=== PATIENT | male | born 1955 | race Caucasian/White ===

== ENCOUNTER → 2016-08-27 | Outpatient (CLI) | payer MEDICARE, OTHER ==
[2016-08-27 14:52] LABS: ABSOLUTE BASOPHILS # (AUTO) 0.1 10^3/uL (0.0-0.2); ABSOLUTE EOSINOPHILS # (AUTO) 0.2 10^3/uL (0.0-0.6); ABSOLUTE LYMPHOCYTES (AUTO) 1.1 10^3/uL (0.5-4.7); ABSOLUTE MONOCYTES (AUTO) 0.8 10^3/uL (0.1-1.4); ABSOLUTE NEUT (AUTO) 4.7 10^3/uL (1.7-8.2); EOSINOPHILS % (AUTO) 2.5 % (0-6); HEMATOCRIT 40.1 % (37.9-51.0); HEMOGLOBIN 13.1 g/dL (13.5-17.0); HGB HCT DIFFERENCE -0.8; LYMPHOCYTES % (AUTO) 16.1 % (13-45); MEAN CORPUSCULAR HGB CONC 32.7 g/dL (32.0-36.0); MEAN CORPUSCULAR VOLUME 86 fl (80-97); MONOCYTES % (AUTO) 11.5 % (3-13); RED BLOOD COUNT 4.68 10^6/uL (4.35-5.55); RED CELL DISTRIBUTION WIDTH 15.7 % (11.5-14.0); SEGMENTED NEUTROPHILS % (AUTO) 68.9 % (42-78); WHITE BLOOD COUNT 6.9 10^3/uL (4.0-10.5)
[2016-08-27 15:29] LABS: ERYTHROCYTE SEDIMENTATION RATE 22 mm/hr (0-20)
== END ==
LOC: LAB 14:32
PROVIDERS: ATTEND Physician Assistant
DX: M10.9 Gout, unspecified (principal)
CPT/HCPCS: 36415; 81001; 84550; 85025; 85652; 86140

== ENCOUNTER → 2016-08-29 | Outpatient (CLI) | payer MEDICARE, OTHER | LOC: RAD 13:27 | PROVIDERS: ATTEND Physician Assistant | DX: M25.572 Pain in left ankle and joints of left foot (principal) ==

== ENCOUNTER 2016-09-08 16:38 | Emergency (ER) | payer MEDICARE, OTHER ==
--- NOTE | 2016-09-08 17:58 | ER Document Report ---
ED Extremity Problem, Lower - General Chief Complaint: Leg Swelling Stated Complaint: LEFT LEG PAIN Time Seen by Provider: 09/08/16 17:42 Notes: Patient is here because of pain in his left leg. He has had multiple problems with that leg extending over the past 6 months. Patient has had a thrombolytic injected in the left thigh region for a blood clot. He subsequently developed a hematoma in the anterior left thigh in January. He was put on warfarin. He subsequently developed a second hematoma. Now, he's been having pain in the left lower leg extending from below the knee on down since June. He was changed from warfarin to Eliquis. He sees about 5 different doctors, none of them can determine what's causing his left lower leg pain. He had a CT scan of the left ankle a couple of weeks ago here at this hospital and it was read as nonspecific findings. He's had lab work done that showed very small increases in his inflammatory markers of sedimentation rate and C-reactive protein. He is scheduled to be seen at [facility] next week on September 13 for evaluation. Basically, today, I think he is here for pain management. TRAVEL OUTSIDE OF THE [place] IN LAST 30 DAYS: No - Related Data Allergies/Adverse Reactions: amoxicillin [Amoxicillin] Allergy (Unknown, Verified 05/20/15 13:19) esomeprazole magnesium [From Nexium] Allergy (Unknown, Verified 05/20/15 13:19) Past Medical History - Social History Smoking Status: Former Smoker Cigarette use (# per day): No Family History: Reviewed & Not Pertinent - Past Medical History Cardiac Medical History: Reports: Hx Atrial Fibrillation - FIB/FLUT, Hx Hypercholesterolemia, Hx Hypertension Pulmonary Medical History: Reports: Hx COPD Endocrine Medical History: Reports: Hx Diabetes Mellitus Type 2 Psychiatric Medical History: Reports: Hx Depression Past Surgical History: Reports: Hx Cardiac Surgery - STENT, PACEMAKER NO DEFIB, Hx Orthopedic Surgery - shoulder and back, Hx Pacemaker - Immunizations Hx Diphtheria, Pertussis, Tetanus Vaccination: No Hx Pneumococcal Vaccination: 05/01/12 Review of Systems - Review of Systems Notes: REVIEW OF SYSTEMS: CONSTITUTIONAL : Denies fever. EENT: Denies eye, ear, nose or mouth or throat pain or other symptoms. CARDIOVASCULAR: Denies chest pain. RESPIRATORY: Denies cough, chest congestion, or shortness of breath. GASTROINTESTINAL: Denies abdominal pain or nausea, vomiting, or diarrhea. GENITOURINARY: Denies difficulty or painful urinating, urinary frequency, blood in urine. MUSCULOSKELETAL: Denies back or neck pain. See history of present illness regarding left lower extremity and especially left ankle pain. SKIN: Denies rash or skin lesions. NEUROLOGICAL: Denies LOC or altered mental status. Denies headache. Denies sensory loss or motor deficits. ALL OTHER SYSTEMS REVIEWED AND NEGATIVE. Physical Exam - Vital signs Vitals: Temp Pulse Resp BP Pulse Ox 98.3 F 69 18 150/83 H 96 09/08/16 16:46 09/08/16 16:46 09/08/16 16:46 09/08/16 16:46 09/08/16 16:46 Interpretation: Normal - Notes Notes: PHYSICAL EXAMINATION: GENERAL: Well-appearing, in no acute distress. Vital signs are normal. HEAD: Atraumatic, normocephalic. NECK: Normal range of motion, supple. LUNGS: Breath sounds clear and equal bilaterally. HEART: Regular rate and rhythm without murmurs. ABDOMEN: Soft, nontender. No guarding or rebound. BACK: No tenderness throughout entire back. EXTREMITIES: Normal range of motion without pain. Toes of both feet are pink and warm. Patient's dorsalis pedis pulse on the left foot is somewhat difficult to palpate because he does have a small amount of edema in the subcutaneous tissues there. However, he has an excellent posterior tibial pulse in that left ankle. Right foot and ankle have good dorsalis pedis pulse and flow. No evidence of swelling or areas that would be expected to cause a DVT. Negative Homans bilaterally. Patient does have a very firm, hard, solid- feeling small mass in the left anterior thigh which she says has been diagnosed as an hematoma. NEUROLOGICAL: Normal speech, slightly limp gait. Normal sensory, motor, and reflex exams. Awake, alert, and oriented x3. Cranial nerves normal. PSYCH: Normal mood, normal affect. SKIN: Warm, dry, no rashes. Course - Re-evaluation Re-evalutation: 09/08/16 20:19 I advised the patient that I saw no way that I would be able to try to diagnose what's causing his pain has been ongoing for many months now and has been addressed by multiple providers of various specialties, and his objective findings have all been essentially normal. In addition, he has an appointment to be evaluated at [facility] next week. I did offer to help him out with something for spasms that he describes in his left foot and pain in that foot and ankle by giving him some Ativan and Vicodin. He says he was just given a prescription today his orthopedist for Lyrica. He is also already taking gabapentin twice a day. I've advised him to continue taking all of his medicines that have been prescribed for him by the other doctors use the medicines I'm prescribing for rescue only. - Vital Signs Vital signs: Temp Pulse Resp BP Pulse Ox 97.7 F 62 18 141/83 H 96 09/08/16 18:09 09/08/16 18:09 09/08/16 18:09 09/08/16 18:09 09/08/16 18:09 Discharge - Discharge Clinical Impression: Left leg pain Condition: Stable Disposition: HOME, SELF-CARE Additional Instructions: Leg Pain, Nonspecific We did not find an obvious cause for your leg pain. There's no sign of blood clot, infection, or other serious disease. Possible causes of vague leg pain include muscle or joint inflammation, disc disease in the lower back, pressure on the nerves in the back, or reduced blood flow through the arteries of the leg. Rest the leg. Pain can be eased with an antiinflammatory pain medicine such as ibuprofen. If the pain involves a small area, a heating pad might help. Call the doctor or return if the leg becomes swollen, weak, discolored, or increasingly painful, or if you develop any other significant change in your health. Oral Narcotic Medication You have been given a prescription for pain control. This medication is a narcotic. It's best taken with food, as nausea can result if taken on an empty stomach. Don't operate machinery or drive within six hours of taking this medication. Do not combine this medicine with alcohol, or with any medication which can cause sedation (such as cold tablets or sleeping pills) unless you get permission from the physician. Narcotics tend to cause constipation. If possible, drink plenty of fluids and eat a diet high in fiber and fruits. Benzodiazepines for spasm relief You have been given a benzodiazepine medication. Examples of this type of medicine include Valium, Xanax, Librium, Ativan, and Halcion. Benzodiazepines have many uses. Medications of this type are used for insomnia, anxiety, muscle spasms, seizures, and drug and alcohol withdrawal. You may become very drowsy when you first take the medication. You should not drive or operate machinery while under its effects. Do not combine the medication with alcohol, or with any other medication without talking to your doctor. Do not take if without specific instruction from your english composition teacher. Some benzodiazepines may have harmful interactions with oral antifungal medicines such as ketoconazole, itraconazole, and nefazodone. If you are taking an antifungal medicine, discuss this with your doctor before taking benzodiazepines. FOLLOW-UP CARE: If you have been referred to a physician for follow-up care, call the physician s office for an appointment as you were instructed or within the next two days. If you experience worsening or a significant change in your symptoms, notify the physician immediately or return to the Emergency Department at any time for re-evaluation. Prescriptions: Hydrocodone/Acetaminophen [[place] 5-325 mg Tablet] 1 - 2 tab PO Q6HP PRN #20 tablet PRN Reason: Lorazepam [Ativan 1 mg Tablet] 1 mg PO Q6HP PRN #12 tab PRN Reason: Referrals: SHELDON HURST MD [Primary Care Provider] - Follow up as needed
[2016-09-08 18:11] VITALS: BP 141/83
== END 2016-09-08 18:09 | disposition home or self-care (01) ==
LOC: ER 16:38
DX: M79.605 Pain in left leg (principal); R22.42 Localized swelling, mass and lump, left lower limb; J44.9 Chronic obstructive pulmonary disease, unspecified; E11.9 Type 2 diabetes mellitus without complications; I48.91 Unspecified atrial fibrillation; E78.00 Pure hypercholesterolemia, unspecified; I10 Essential (primary) hypertension; Z95.0 Presence of cardiac pacemaker; Z88.0 Allergy status to penicillin; Z86.718 Personal history of other venous thrombosis and embolism; Z87.891 Personal history of nicotine dependence
CPT/HCPCS: 99283

== ENCOUNTER 2016-09-22 10:42 | Emergency (ER) | payer MEDICARE, OTHER ==
--- NOTE | 2016-09-22 11:05 | ER Document Report ---
ED Medical Screen (RME) - General Chief Complaint: Leg Pain Stated Complaint: LEFT LEG PAIN Time Seen by Provider: 09/22/16 10:56 Mode of Arrival: Wheelchair Information source: Patient Notes: Pt reports developing a hematoma to left groin gradually after being on eliquis for a fib. Pt had hematoma removed last week at [facility]. Pt c/o pain and swelling to site similiar to hematoma he had initially. Pt c/o numbness and tingling to left foot. hx: a fib, HTN, DM, pacemaker, hematoma removed 1 week ago TRAVEL OUTSIDE OF THE [place] IN LAST 30 DAYS: No - Related Data Allergies/Adverse Reactions: amoxicillin [Amoxicillin] Allergy (Unknown, Verified 05/20/15 13:19) esomeprazole magnesium [From Nexium] Allergy (Unknown, Verified 05/20/15 13:19) Past Medical History - Past Medical History Cardiac Medical History: Reports: Hx Atrial Fibrillation - FIB/FLUT, Hx Hypercholesterolemia, Hx Hypertension Pulmonary Medical History: Reports: Hx COPD Endocrine Medical History: Reports: Hx Diabetes Mellitus Type 2 Renal/ Medical History: Denies: Hx Peritoneal Dialysis Psychiatric Medical History: Reports: Hx Depression Past Surgical History: Reports: Hx Cardiac Surgery - STENT, PACEMAKER NO DEFIB, Hx Orthopedic Surgery - shoulder and back, Hx Pacemaker - Immunizations Hx Diphtheria, Pertussis, Tetanus Vaccination: No Physical Exam - Vital signs Vitals: Temp Pulse Resp BP Pulse Ox 98.0 F 69 18 144/83 H 97 09/22/16 10:49 09/22/16 10:49 09/22/16 10:49 09/22/16 10:49 09/22/16 10:49 - Cardiovascular Pulses: Normal: Dorsalis pedis - Extremities General lower extremity: Tender - swollen, tender area to left prox thigh at surgical site Course - Re-evaluation Re-evalutation: 09/22/16 11:[address] bean who advises obtaining arterial as well as venous doppler study - Vital Signs Vital signs: Temp Pulse Resp BP Pulse Ox 98.0 F 69 18 144/83 H 97 09/22/16 10:49 09/22/16 10:49 09/22/16 10:49 09/22/16 10:49 09/22/16 10:49
[2016-09-22] MEDS ORDERED: ONDANSETRON 4 MG TAB.RAPDIS PO ONE (11:11)
[2016-09-22 11:40] LABS: ABSOLUTE BASOPHILS # (AUTO) 0.1 10^3/uL (0.0-0.2); ABSOLUTE EOSINOPHILS # (AUTO) 0.2 10^3/uL (0.0-0.6); ABSOLUTE LYMPHOCYTES (AUTO) 0.8 10^3/uL (0.5-4.7); ABSOLUTE MONOCYTES (AUTO) 0.7 10^3/uL (0.1-1.4); ABSOLUTE NEUT (AUTO) 5.7 10^3/uL (1.7-8.2); BASOPHILS % (AUTO) 1.1 % (0-2); EOSINOPHILS % (AUTO) 2.3 % (0-6); HEMATOCRIT 37.2 % (37.9-51.0); HEMOGLOBIN 11.8 g/dL (13.5-17.0); HGB HCT DIFFERENCE -1.8; LYMPHOCYTES % (AUTO) 10.5 % (13-45); MEAN CORPUSCULAR HEMOGLOBIN 27.3 pg (27.0-33.4); MEAN CORPUSCULAR HGB CONC 31.8 g/dL (32.0-36.0); MEAN CORPUSCULAR VOLUME 86 fl (80-97); MONOCYTES % (AUTO) 9.8 % (3-13); RED BLOOD COUNT 4.33 10^6/uL (4.35-5.55); RED CELL DISTRIBUTION WIDTH 15.6 % (11.5-14.0); SEGMENTED NEUTROPHILS % (AUTO) 76.3 % (42-78); WHITE BLOOD COUNT 7.5 10^3/uL (4.0-10.5)
[2016-09-22 11:46] LABS: PROTHROMBIN TIME 16.2 SEC (11.4-15.4)
[2016-09-22 12:06] LABS: ALANINE AMINOTRANSFERASE 31 U/L (21-72); ALBUMIN 4.5 g/dL (3.5-5.0); ALKALINE PHOSPHATASE 89 U/L (38-126); ANION GAP 17 (5-19); ASPARTATE AMINO TRANSFERASE 27 U/L (17-59); BILIRUBIN,TOTAL 1.7 mg/dL (0.2-1.3); BLOOD UREA NITROGEN 22 mg/dL (7-20); CALCIUM 10.1 mg/dL (8.4-10.2); CARBON DIOXIDE 24 mmol/L (22-30); CHLORIDE 99 mmol/L (98-107); CREATININE RESULT 1.29 mg/dL (0.52-1.25); GLUCOSE 147 mg/dL (75-110); POTASSIUM 4.4 mmol/L (3.6-5.0); SODIUM 140.1 mmol/L (137-145)
--- NOTE | 2016-09-22 14:17 | ER Document Report ---
ED General - General Chief Complaint: Leg Pain Stated Complaint: LEFT LEG PAIN Time Seen by Provider: 09/22/16 10:56 Mode of Arrival: Wheelchair Information source: Patient TRAVEL OUTSIDE OF THE [place] IN LAST 30 DAYS: No - HPI Onset: Other - [age]-year-old male presents to the emergency room today stating that he has got discomfort to his left lower extremity medially and distal to the groin he had a hematoma evacuated at [facility] [address] [facility] about a week and a half ago and is getting swelling back to that region. - Related Data Allergies/Adverse Reactions: amoxicillin [Amoxicillin] Allergy (Unknown, Verified 05/20/15 13:19) esomeprazole magnesium [From Nexium] Allergy (Unknown, Verified 05/20/15 13:19) Past Medical History - General Information source: Patient - Social History Smoking Status: Never Smoker Cigarette use (# per day): No Chew tobacco use (# tins/day): No Smoking Education Provided: No Frequency of alcohol use: None Drug Abuse: None Family History: Reviewed & Not Pertinent - Past Medical History Cardiac Medical History: Reports: Hx Atrial Fibrillation - FIB/FLUT, Hx Hypercholesterolemia, Hx Hypertension Pulmonary Medical History: Reports: Hx COPD Endocrine Medical History: Reports: Hx Diabetes Mellitus Type 2 Renal/ Medical History: Denies: Hx Peritoneal Dialysis Psychiatric Medical History: Reports: Hx Depression Past Surgical History: Reports: Hx Cardiac Surgery - STENT, PACEMAKER NO DEFIB, Hx Orthopedic Surgery - shoulder and back, Hx Pacemaker, Hx Vascular Surgery - hematoma removal left leg - Immunizations Hx Diphtheria, Pertussis, Tetanus Vaccination: No Hx Pneumococcal Vaccination: 05/01/12 Review of Systems - Review of Systems Constitutional: No symptoms reported EENT: No symptoms reported Cardiovascular: No symptoms reported Respiratory: No symptoms reported Gastrointestinal: No symptoms reported Genitourinary: No symptoms reported Male Genitourinary: No symptoms reported Musculoskeletal: No symptoms reported Skin: No symptoms reported Hematologic/Lymphatic: No symptoms reported Neurological/Psychological: No symptoms reported Physical Exam - Vital signs Vitals: Temp Pulse Resp BP Pulse Ox 98.0 F 69 18 144/83 H 97 09/22/16 10:49 09/22/16 10:49 09/22/16 10:49 09/22/16 10:49 09/22/16 10:49 Interpretation: Normal - General General appearance: Appears well, Alert - HEENT Head: Normocephalic, Atraumatic Eyes: Normal Pupils: PERRL - Respiratory Respiratory status: No respiratory distress Chest status: Nontender Breath sounds: Normal Chest palpation: Normal - Cardiovascular Rhythm: Regular Heart sounds: Normal auscultation Murmur: No - Abdominal Inspection: Normal Distension: No distension Bowel sounds: Normal Tenderness: Nontender Organomegaly: No organomegaly - Back Back: Normal, Nontender - Extremities General upper extremity: Normal inspection, Nontender, Normal color, Normal ROM , Normal temperature General lower extremity: Normal inspection, Nontender, Normal color, Normal ROM , Normal temperature, Normal weight bearing. No: Sreekanth's sign Thigh: Other - Hematoma left medial and proximal thigh inflammation tender at surgical site from prior hematoma evacuation. - Neurological Neuro grossly intact: Yes Cognition: Normal Orientation: AAOx4 Miguel Coma Scale Eye Opening: Spontaneous Ripton Coma Scale Verbal: Oriented Ripton Coma Scale Motor: Obeys Commands Miguel Coma Scale Total: 15 Speech: Normal Motor strength normal: LUE, RUE, LLE, RLE Sensory: Normal - Psychological Associated symptoms: Normal affect, Normal mood - Skin Skin Temperature: Warm Skin Moisture: Dry Skin Color: Normal Course - Re-evaluation Re-evalutation: 09/22/16 14:13 Discussion was had with the patient regarding the discomfort that he feels the site radiology confirm no venous or arterial occlusion at the site that there was in fact some soft tissue inflammation consistent with some reforming of a hematoma in the area. In fact have a surgeon at [facility] [address] at the [facility] does have access to him will follow up with him in the next couple of days we agreed that I would try to provide him some pain medication and spasmatic relief in the interim. He should return here for absolutely any change or worsening conditioning including not limited to coolness to the lower extremity loss of pulses increased pain - Vital Signs Vital signs: Temp Pulse Resp BP Pulse Ox 98.0 F 69 18 144/83 H 97 09/22/16 10:49 09/22/16 10:49 09/22/16 10:49 09/22/16 10:49 09/22/16 10:49 - Laboratory Result Diagrams: 09/22/16 11:25 09/22/16 11:25 Laboratory results interpreted by me: 09/22/16 09/22/16 09/22/16 11:25 11:25 11:25 RBC 4.33 L Hgb 11.8 L Hct 37.2 L MCHC 31.8 L RDW 15.6 H Lymphocytes % 10.5 L PT 16.2 H BUN 22 H Creatinine 1.29 H Est GFR (Non-Af Amer) 56 L Glucose 147 H Total Bilirubin 1.7 H Direct Bilirubin 1.0 H - Diagnostic Test Radiology reviewed: Reports reviewed Discharge - Discharge Clinical Impression: Traumatic hematoma of left thigh Qualifiers: Encounter type: subsequent encounter Qualified Code(s): S70.12XD - Contusion of left thigh, subsequent encounter Condition: Fair Disposition: HOME, SELF-CARE Additional Instructions: Contusion Your injury has resulted in a contusion -- a crushing of the deep tissues. No injury to important structures was detected during the physician's exam. Contusions vary in the amount of pain they cause, and in the length of time required for healing. Typically, the area will become bruised, and will remain painful to touch for two or three weeks. However, most patients are back to working and playing within a few days. After the initial period of rest and cold-packs, your symptoms (together with the doctor's recommendations) will determine how rapidly you can get back to full activity. Usually this means "do what feels okay, but don't do things that hurt." If re-examination was recommended, it's important to follow up as instructed. Call the doctor or return any time if pain increases, if swelling becomes severe, if you develop numbness or weakness in an injured extremity, or if any other alarming symptoms occur. Ice to the affected area. Must follow-up with your surgeon in 1-2 days. Return to the emergency room for any change or worsening. Follow-up with private doctor in 1 to 2 days for final radiology readings please return to the emergency room for any change worsening condition. Follow up with private M.D. for all other routine health care needs. Prescriptions: Gabapentin [Neurontin 300 mg Capsule] 300 mg PO Q12 #60 capsule Oxycodone HCl/Acetaminophen [Percocet 5-325 mg Tablet] 1 - 2 tab PO Q4H PRN #15 tablet PRN Reason:
[2016-09-22 14:40] VITALS: BP 136/72
--- NOTE | 2016-09-23 08:14 | XCELERA REPORT ---
[address] [address] Lower Extremity Venous Evaluation Name: LINO SCRUGGS Age: 61 yrs Gender: Male : 1955 Patient Status: Emergency Patient Location: ER Study Date: 09/22/2016 12:13 PM Procedure: Color flow and duplex imaging of the veins of the left lower extremity as well as the right Common Femoral vein. Reason For Study: Hx hematoma removed, swelling, pain Ordering Physician: TONJA EDMONDS Performed By: Merrick Romero Right Sided Venous Evaluation The right common femoral vein is fully compressible. Spontaneous and phasic flow is present in the right common femoral vein. Left Sided Venous Evaluation Unable to visualize the Peroneal vessels. Normal vessel filling wall to wall, compression and augmentation as well as Colour flow down to the infrageniculate veins. Critical Findings Called in to the ER. Interpretation Summary No duplex evidence of DVT or obstruction in the left lower extremity nor in the right Common Femoral vein. : TONJA EDMONDS > Raphael Scruggs
--- NOTE | 2016-09-23 08:19 | XCELERA REPORT ---
[address] [address] Lower Extremity Arterial Evaluation Name: LINO SCRUGGS Age: 61 yrs Gender: Male : 1955 Patient Status: Emergency Patient Location: ER Study Date: 09/22/2016 11:54 AM Procedure: A color flow and duplex scan of the lower extremity arteries was performed on the left with velocity and waveform anaylsis. Reason For Study: hx: hematoma removed, swelling, pain Ordering Physician: TONJA EDMONDS Performed By: Merrick Romero Measurements and Calculations Right Left CHILDREN'S SERVICE SUPERVISOR PSV 67.7 cm/sec Prox SFA PSV 58.7 cm/sec Mid SFA PSV -62.9 cm/sec Dist SFA PSV -197.6 cm/sec Dist Pop A PSV 103.1 cm/sec Dist MARCELLA PSV 79.5 cm/sec Dist LEGAL CLERK PSV 79.0 cm/sec Ben Pedis PSV 25.3 cm/sec Left Side Arterial Evaluation A large, 5 x 10 cm, non vascular, lucent mass is noted in the subcutaneous tissues of the thigh. Normal velocity and triphasic waveforms noted from the Common Femoral artery to the Popliteal artery. Biphasic in the infrageniculate vessels. 0 stenosis noted. Ankle Brachial index was not done. Critical Findings Discussed with Provider Kasia. Interpretation Summary Mild hemodynamically significant lesions in the left lower extremity only, on duplex imaging, at rest. Very large mass, possibly recurrent hematoma, at the site of a recent surgery. : TONJA EDMONDS > Raphael Scruggs
== END 2016-09-22 15:01 | disposition home or self-care (01) ==
LOC: ER 10:42
DX: S70.12XD Contusion of left thigh, subsequent encounter (principal); X58.XXXD Exposure to other specified factors, subsequent encounter; Z98.890 Other specified postprocedural states; Z88.0 Allergy status to penicillin; I10 Essential (primary) hypertension; I48.91 Unspecified atrial fibrillation; I48.92 Unspecified atrial flutter; J44.9 Chronic obstructive pulmonary disease, unspecified; Z95.0 Presence of cardiac pacemaker
CPT/HCPCS: 99284; 36415; 85025; 85610; 80053; 93971 ×2; 93926 ×2; A9270; S0119

== ENCOUNTER 2016-10-03 15:18 | Inpatient (IN) | payer MEDICARE, OTHER ==
[2016-10-03] MEDS ORDERED: DILTIAZEM HCL/D5W 125 ML IV PRN ×2 (15:23→22:06)
--- NOTE | 2016-10-03 15:28 | ER Document Report ---
ED General - General Stated Complaint: DIFFICULTY BREATHING Time Seen by Provider: 10/03/16 15:22 Mode of Arrival: Medic Information source: Patient Notes: 61 yr old male who was recently discharged from [facility] with a hematoma removal of the elft leg with a hx of afib presents with complaints of sob. pt denies any fevers or chills. pt has hx of copd, sats 95% by ems. pt noted to have been removed from both eliquiis and amiodarone. TRAVEL OUTSIDE OF THE [place] IN LAST 30 DAYS: No - HPI Onset: Just prior to arrival Onset/Duration: Sudden Quality of pain: Achy Severity: Mild Pain Level: 1 Associated symptoms: Shortness of breath Exacerbated by: Walking Relieved by: Denies Similar symptoms previously: No Recently seen / treated by doctor: Yes - Related Data Allergies/Adverse Reactions: amoxicillin [Amoxicillin] Allergy (Unknown, Verified 05/20/15 13:19) esomeprazole magnesium [From Nexium] Allergy (Unknown, Verified 05/20/15 13:19) Home Medications: Current Home Medications Amitriptyline HCl [Elavil 25 mg Tablet] 25 mg PO QHS 10/03/16 [History] Amlodipine Besylate [Norvasc 5 mg Tablet] 5 mg PO DAILY 10/03/16 [History] Tiotropium [place] [Spiriva Respimat] 2 puff IH DAILY 10/03/16 [History] Past Medical History - Social History Smoking Status: Never Smoker Cigarette use (# per day): No Chew tobacco use (# tins/day): No Smoking Education Provided: No Family History: Reviewed & Not Pertinent - Past Medical History Cardiac Medical History: Reports: Hx Atrial Fibrillation - FIB/FLUT, Hx Hypercholesterolemia, Hx Hypertension Pulmonary Medical History: Reports: Hx COPD Endocrine Medical History: Reports: Hx Diabetes Mellitus Type 2 Renal/ Medical History: Denies: Hx Peritoneal Dialysis Psychiatric Medical History: Reports: Hx Depression Past Surgical History: Reports: Hx Cardiac Surgery - STENT, PACEMAKER NO DEFIB, Hx Orthopedic Surgery - shoulder and back, Hx Pacemaker, Hx Vascular Surgery - hematoma removal left leg - Immunizations Hx Diphtheria, Pertussis, Tetanus Vaccination: No Hx Pneumococcal Vaccination: 05/01/12 Review of Systems - Review of Systems Notes: REVIEW OF SYSTEMS: CONSTITUTIONAL : Denies fever, chills, or sweats. Denies recent illness. EENT: Denies eye, ear, throat, or mouth pain or symptoms. Denies nasal or sinus congestion or discharge. Denies throat, tongue, or mouth swelling or difficulty swallowing. CARDIOVASCULAR: Denies chest pain. Denies palpitations or racing or irregular heart beat. Denies ankle edema. RESPIRATORY: admits to sob GASTROINTESTINAL: Denies abdominal pain or distention. Denies nausea, vomiting , or diarrhea. Denies blood in vomitus, stools, or per rectum. Denies black, tarry stools. Denies constipation. GENITOURINARY: Denies difficulty urinating, painful urination, burning, frequency, blood in urine, or discharge. MUSCULOSKELETAL: Denies back or neck pain or stiffness. Denies joint pain or swelling. SKIN: Denies rash, lesions or sores. HEMATOLOGIC : Denies easy bruising or bleeding. LYMPHATIC: Denies swollen, enlarged glands. NEUROLOGICAL: Denies confusion or altered mental status. Denies passing out or loss of consciousness. Denies dizziness or lightheadedness. Denies headache. Denies weakness or paralysis or loss of use of either side. Denies problems with gait or speech. Denies sensory loss, numbness, or tingling. Denies seizures. PSYCHIATRIC: Denies anxiety or stress. Denies depression, suicidal ideation, or homicidal ideation. ALL OTHER SYSTEMS REVIEWED AND NEGATIVE. Dictation was performed using [employer] voice recognition software PHYSICAL EXAMINATION: GENERAL: Well-appearing, well-nourished and in no acute distress. HEAD: Atraumatic, normocephalic. EYES: Pupils equal round and reactive to light, extraocular movements intact, sclera anicteric, conjunctiva are normal. ENT: Nares patent, oropharynx clear without exudates. Moist mucous membranes. NECK: Normal range of motion, supple without lymphadenopathy LUNGS: Breath sounds clear to auscultation bilaterally and equal. No wheezes rales or rhonchi. HEART: tachycardic, irregular rate and rhytm ABDOMEN: Soft, nontender, nondistended abdomen. No guarding, no rebound. No masses appreciated. Musculoskeletal: Normal range of motion, no pitting or edema. No cyanosis. NEUROLOGICAL: Cranial nerves grossly intact. Normal speech, normal gait. Normal sensory, motor exams PSYCH: Normal mood, normal affect. SKIN: left thigh wound vac Physical Exam - Vital signs Vitals: Temp 98.0 F 06/05/17 20:40 Course - Re-evaluation Re-evalutation: 10/03/16 15:27 pt seen immediately on arrival by ems pt given 20mg of cardizem, started on drip at 5mg, hr from 130-150 down to 100, will continue cardizem drip 10/03/16 16:22 While I was with 2 stroke alerts and a shoulder dislocation I was notfied by 5 different people that patients was extremely rude ot them, yelling at them , demanding I see her. I asked them to explain i was in emergencies and could not leave my patients contacted [facility], no beds available 10/03/16 16:30 I explained to that [facility] has no beds available, became irate, demanded that patient go there and that she would take him herself. I explained that due to ocncern of a blood clot that it would be a terrible idea to go before the testing was performed. After calmed her down she finally agreed to wait for that testing. She then stated that she does not want Dr Reyes as her physician. I explained that I would continue treating the patient appropriately as he deserved care. I also stated to the that she could not treat the staff rudely as she has including EMS (who as a result have notified police of her actions). immediately jumped toward me and pointed her finger in m face and began yelling. I calmy told her she needs to stp back or I will have security remove her. continued to yell stating "youre a medical professional and i can do whatever I want , and I want to talk to the head man of the hospital" Her who is the patient tried ot calm the patient down multiple times during this. She contined to yell " I waited 45 minutes to talk to you" I explained I had 3 critical patients who I had to see , that I saw her immeidately on arrival and that I would treat all patients with the same speed. She continued to yell and I walked out of the room. Awa charge nurse notified 10/03/16 20:59 Given that there is no room available at outlying facility I cannot transfer at this time, patient will be [facility] to the [facility] for A. fib RVR pleural effusions and nodule, very long discussion with family regarding this nodule I reviewed previous images and did not find any notice of the previous nodule however family does state that Dr. reyes did explain this nodule to them 10/03/16 21:00 - Vital Signs Vital signs: Temp Pulse Resp BP Pulse Ox 98.0 F 10/03/16 20:40 - Laboratory Result Diagrams: 10/03/16 16:40 10/03/16 16:40 Laboratory results interpreted by me: 10/03/16 10/03/16 16:40 16:40 RBC 3.88 L Hgb 10.6 L Hct 33.2 L MCHC 31.8 L RDW 15.7 H Plt Count 117 L Seg Neutrophils % 78.9 H Lymphocytes % 8.6 L Glucose 129 H Total Bilirubin 1.4 H Direct Bilirubin 0.7 H - Diagnostic Test Radiology reviewed: Image reviewed, Reports reviewed - EKG Interpretation by Me EKG shows normal: Sinus rhythm, [place], Intervals, QRS Complexes Rate: Tachycardia Rhythm: A.Fib Critical Care Note - Critical Care Note Total time excluding time spent on procedures (mins): 31 Comments: 31 minutes of critical care time spent in direct contact evaluating and reevaluating the patient, treating symptoms, reviewing labs and studies and speaking with family and consultants excluding any procedures Discharge - Discharge Clinical Impression: Atrial fibrillation with rapid ventricular response, Pleural effusion, Lung nodule Condition: Fair Disposition: ADMITTED INPATIENT Admitting Provider: Hospitalist Unit Admitted: [facility]
[2016-10-03 16:53] LABS: ABSOLUTE BASOPHILS # (AUTO) 0.1 10^3/uL (0.0-0.2); ABSOLUTE EOSINOPHILS # (AUTO) 0.1 10^3/uL (0.0-0.6); ABSOLUTE LYMPHOCYTES (AUTO) 0.7 10^3/uL (0.5-4.7); ABSOLUTE MONOCYTES (AUTO) 0.8 10^3/uL (0.1-1.4); ABSOLUTE NEUT (AUTO) 5.9 10^3/uL (1.7-8.2); BASOPHILS % (AUTO) 0.8 % (0-2); EOSINOPHILS % (AUTO) 1.1 % (0-6); HEMATOCRIT 33.2 % (37.9-51.0); HEMOGLOBIN 10.6 g/dL (13.5-17.0); HGB HCT DIFFERENCE -1.4; LYMPHOCYTES % (AUTO) 8.6 % (13-45); MEAN CORPUSCULAR HEMOGLOBIN 27.3 pg (27.0-33.4); MEAN CORPUSCULAR HGB CONC 31.8 g/dL (32.0-36.0); MEAN CORPUSCULAR VOLUME 86 fl (80-97); MONOCYTES % (AUTO) 10.6 % (3-13); RED BLOOD COUNT 3.88 10^6/uL (4.35-5.55); RED CELL DISTRIBUTION WIDTH 15.7 % (11.5-14.0); SEGMENTED NEUTROPHILS % (AUTO) 78.9 % (42-78); WHITE BLOOD COUNT 7.5 10^3/uL (4.0-10.5)
[2016-10-03 17:15] LABS: ALANINE AMINOTRANSFERASE 28 U/L (21-72); ALKALINE PHOSPHATASE 105 U/L (38-126); ANION GAP 15 (5-19); ASPARTATE AMINO TRANSFERASE 30 U/L (17-59); BILIRUBIN,DIRECT 0.7 mg/dL (0.0-0.4); BILIRUBIN,TOTAL 1.4 mg/dL (0.2-1.3); BLOOD UREA NITROGEN 14 mg/dL (7-20); CALCIUM 9.3 mg/dL (8.4-10.2); CARBON DIOXIDE 26 mmol/L (22-30); CHLORIDE 99 mmol/L (98-107); CREATINE KINASE 55 U/L (55-170); CREATININE RESULT 0.84 mg/dL (0.52-1.25); GLUCOSE 129 mg/dL (75-110); POTASSIUM 4.2 mmol/L (3.6-5.0); SODIUM 140.1 mmol/L (137-145); TOTAL PROTEIN 7.2 g/dL (6.3-8.2)
[2016-10-03 17:25] LABS: CREATINE KINASE MB 2.35 ng/mL (<4.55)
[2016-10-03 17:28] LABS: TROPONIN I 0.078 ng/mL
--- NOTE | 2016-10-03 18:43 | RADIOLOGY REPORT (SQ) ---
EXAM DESCRIPTION: CTA CHEST COMPLETED DATE/TIME: 10/03/2016 6:24 pm REASON FOR STUDY: sob COMPARISON: None. TECHNIQUE: CT scan of the chest performed using helical scanning technique with dynamic intravenous contrast injection. Images reviewed with lung, soft tissue and bone windows. Reconstructed coronal and sagittal MPR images reviewed. Additional 3 dimensional post-processing performed to develop Maximal Intensity Projection images (ME P). All images stored on PACS. All CT scanners at this facility use dose modulation, iterative reconstruction, and/or weight based d osing when appropriate to reduce radiation dose to as low as reasonably achievable (ALARA). [facility]: Dose Right [facility]: CareDose [facility]: Dose Right [facility]: Teradose 4D [facility]: Timehop CONTRAST TYPE AND DOSE: 74 mL Isovue 370- low osmolar. RENAL FUNCTION: Creatinine 0.8 BUN 14 RADIATION DOSE: 39.48 mGy. LIMITATIONS: None. FINDINGS: LUNGS AND PLEURA: There is a moderate right pleural effusion with a small left pleural eff usion. There is compressive atelectasis in the dependent right lower lobe. A 7 mm subpleural nodule is present in the left costophrenic angle on image 104 series 4. AORTA AND GREAT VESSELS: No aneurysm or dissection. HEART: No pericardial effusion. PULMONARY ARTERIES: No emboli visualized in the main pulmonary arteries or the segmental branches. HILAR AND MEDIASTINAL STRUCTURES: No identified masses or abnormal nodes. HARDWARE: None in the chest. UPPER ABDOMEN: A small amount of ascites is present. THYROID AND OTHER SOFT TISSUES: No masses. No adenopathy. BONES: There are mild compression changes at L1 that do not appear to be acute. 3D MIPS: Confirm above findings. OTHER: No other significant finding. IMPRESSION: 1. There is no evidence of pulmonary emboli. 2. There is a moderate right pleural effusion and small left pleural effusion. 3. There is a 7 mm subpleural nodule on the left. COMMENT: FLEISCHNER CRITERIA FOR FOLLOW-UP OF PULMONARY NODULES Incidentally detected new nodules in persons 35 or older. HIGH RISK: History of smoking or other known risk factors. 6-8mm single solid nodule: LOW RISK: CT 6-12 mo; then consider CT 18-24 mo. HIGH RISK: CT 6-12 mo; th en CT 18-24 mo. TECHNICAL DOCUMENTATION: JOB ID: [id number] Quality ID # [id number]: Final reports with documentation of one or more dose reduction techniques (e.g., Au tomated exposure control, adjustment of the mA and/or kV according to patient size, use of iterative reconstruction technique) 2010 [employer]- All Rights Reserved
[2016-10-03] MEDS ORDERED: MORPHINE SULFATE 10 MG/ML INJ IV ONE (19:01)
--- NOTE | 2016-10-03 21:17 | EKG REPORT ---
SEVERITY:- ABNORMAL ECG - ATRIAL FLUTTER, FIBRILLATION PAIRED VENTRICULAR PREMATURE COMPLEXES NONSPECIFIC INTRAVENTRICULAR CONDUCTION DELAY MINIMAL ST DEPRESSION, ANTERIOR LEADS : Confirmed by: Kacey Sousa 03-Oct-2016 21:16:21
[2016-10-03] MEDS ORDERED: GLUCAGON,HUMAN RECOMB 1 MG INJ IM PRN (21:59)
[2016-10-03] MEDS ORDERED: DEXTROSE 40% GEL 15 GM TUBE PO PRN ×2 (21:59)
[2016-10-03] MEDS ORDERED: DEXTROSE 50%-WATER 25 GM/50 ML DISP.SYRIN IV PRN ×2 (21:59)
[2016-10-03] MEDS ORDERED: MAGNESIUM HYDROXIDE SUSP 30 ML UDCUP PO PRN (22:04)
[2016-10-03] MEDS ORDERED: MAG HYDROX/AL HYDROX/SIMETH SUSP 30 ML UDCUP PO PRN (22:04)
[2016-10-03 22:05] LABS: ADD ON TESTING BLD IN LAB ACKNOWLEDGE
[2016-10-03 22:16] LABS: MAGNESIUM 1.5 mg/dL (1.6-2.3)
--- NOTE | 2016-10-03 22:33 | PDOC H&P ---
History of Present Illness Admission Date/PCP: 10/03/16 21:52 PCP Oneida Howard/Bill Patient complains of: difficulty breathing History of Present Illness: LINO SCRUGGS is a 61 year old male with known underlying atrial fibrillation, who presents to the emergency room for evaluation of sudden onset of shortness of breath earlier today. No fever chills, chest or abdominal pain. Shortness of breath was worsened with much of any exertion. Upon presentation to the emergency room, was noted to be in atrial fibrillation with rapid ventricular response, requiring application of diltiazem drip. Currently resting quietly, stating he feels better. Still on the Cardizem drip , which patient states is a first requirement for him. Diagnosed several years ago with atrial fibrillation. Status post cardioversion 2. Fairly recent medical history is remarkable for patient having been taken off amiodarone a number of months ago due to low blood pressure. Eliquis was stopped in June after he developed hematoma in his left thigh. Hematoma was causing significant pain in his left lower extremity. Status post removal of the hematoma approximately 3 weeks ago at [facility]. Return last week where he underwent incision and drainage twice in the span of approximately 3 days for recurrence of fluid, with application of wound VAC, which is still in place. Left lower extremity pain greatly improved after removal of the clot. Remains off systemic anticoagulation. No history of myocardial infarction, congestive heart failure or pulmonary embolus. However, he does have a history of lower extremity DVT. Treated with Coumadin. Coronary arterial stent implant 1, prior to 1999. Patient has been discussed with emergency room physician who evaluated the patient. . Laboratory results are listed in [employer] and are reviewed. X-ray summary results are listed below, with full report(s) reviewed. . EKG reviewed and compared to prior tracing from May 20 of last year. Social history/personal habits: . 2 sons. Retired. No use of illicit drugs. Former smoker. Occasional glass of wine. Allergies/adverse reactions are listed in [employer] and are reviewed. Patient thinks he is able to tolerate Keflex without difficulty. Home medications initially autopopulated into [employer] may not accurately reflect patient's true medications, dosages, and/or frequencies. artificial insemination technician has reconciled medications. REVIEW OF SYSTEMS: Constitutional: No fever or chills. Eyes: No vision complaints. ENT: No swallowing problems or complaints. Partial hearing loss. Pulmonary: See history and present illness. Cardiovascular: No current complaints, including chest pain. Gastrointestinal: No current complaints, including nausea or vomiting. Skin: No current complaints, including rashes. Hematologic: Easy bruising. Neurologic: No current complaints, including numbness or tingling. Musculoskeletal: Joint pain from arthritis. Psychiatric: Mild anxiety and depression. Denies suicidal or homicidal ideation. Endocrine: No current complaints, including polyuria. Genitourinary: No current complaints, including dysuria. PHYSICAL EXAMINATION: 5 feet 8 inches tall. 83.9 kg. BMI 28.1 kg/m. Blood pressure 164/92 pulse 110 and slightly irregular. 96% saturation on room air. Respirations are 24 and unlabored. Temperature 98.0. Slightly overweight otherwise well-nourished well-developed male appearing approximately his stated age. Pleasant awake alert and cooperative. No obvious distress other than perhaps mildly anxious. is present at his side; patient approves. Skin is warm and dry. No grossly obvious evidence of rash in areas of skin examined. No subcutaneous nodules palpated. ENT: Hearing grossly normal to normal conversation. Tongue midline on protrusion pink and slightly tacky. Eyes: No scleral icterus. Pupils equal and reactive to light at 4 mm. [place] conjunctivae. Neck is supple and nontender to gentle active range of motion and palpation. Midline trachea. No palpable thyroid nodule mass enlargement or tenderness. Lymphatic: No palpable cervical or clavicular nodes. Neck and lymphatic exams limited by patient body habitus. Psychiatric: Reasonable insight into acute and chronic medical issues. Oriented to time location and why here. Lungs: Auscultation reveals clear and equal breath sounds bilaterally. No use of accessory respiratory muscles. Cardiovascular: Heart slightly irregular rate and rhythm, without gallop murmur or rub. No carotid or abdominal aortic bruits. No ankle or pedal edema. Palpable dorsalis pedis pulses. Abdomen:soft slightly distended nontender with positive bowel sounds. Unable to adequately evaluate abdomen for masses or organomegaly due to distention. Extremities: Feet are warm and dry. No calf tenderness to compression. No grossly obvious visual evidence of calf swelling. Gentle manipulation of lower extremities fails to reveal any obvious evidence of injury or instability to knees hips or ankles. Examination of the left thigh reveals wound VAC in place, with site in his upper medial anterior thigh. No evidence of surrounding inflammation or swelling. Neurologic: Moves upper extremities grossly normally. Patellar reflexes absent. Absent Babinski. Light touch is intact at feet. Dorsiflexion and plantarflexion of feet 5 / 5 and symmetric. Past Medical History Cardiac Medical History: Reports: Atrial Fibrillation - FIB/FLUT, DVT, Hyperlipidema, Hypertension Denies: Congestive Heart Failure, Myocardial Infarction, Pulmonary Embolism Pulmonary Medical History: Reports: Chronic Obstructive Pulmonary Disease (COPD) Denies: Asthma, Sleep Apnea EENT Medical History: Reports: Ears - Partial hearing loss Denies: Eyes, Throat Neurological Medical History: Denies: Hemorrhagic CVA, Ischemic CVA, Seizures Endocrine Medical History: Reports: Diabetes Mellitus Type 2 Denies: Hyperthyroidism, Hypothyroidism Renal/ Medical History: Reports: None GI Medical History: Reports: Gastroesophageal Reflux Disease Denies: Cirrhosis, Hepatitis, Peptic Ulcer Disease Musculoskeltal Medical History: Reports: Arthritis Skin Medical History: Reports: None Psychiatric Medical History: Reports: Depression, General Anxiety Disorder Denies: Alcohol Dependency, Substance Abuse, Tobacco Dependency Hematology: Reports: Other - Easy bruising Infectious Medical History: Denies: Hepatitis B, Hepatitis C Past Surgical History Past Surgical History: Reports: Coronary Stent - before 1999, Orthopedic Surgery - shoulder and back, Pacemaker, Vascular Surgery - hematoma removal left leg, Other - cardioversion X 2 atrial fib Social History Information Source: Patient, Emergency Med Personnel, [facility] Records Lives with: Spouse/Significant other Smoking Status: Former Smoker Frequency of Alcohol Use: Occasional Hx Recreational Drug Use: No Drugs: None Hx Prescription Drug Abuse: No - Advance Directive Resuscitation Status: Full Code Surrogate healthcare decision maker:: Family History Family History: Reviewed & Not Pertinent Parental Family History Reviewed: Yes - Parents of heart disease Children Family History Reviewed: Yes - Healthy Sibling(s) Family History Reviewed.: Yes - Brother with recent stroke Medication/Allergy Home Medications: RX: Atorvastatin Calcium [Lipitor 40 mg Tablet] 40 mg PO QHS 09/27/11 RX: Zolpidem Tartrate [Ambien 10 mg Tablet] 10 mg PO QHS 09/27/11 RX: Bupropion HCl [Wellbutrin Xl 300mg 24hr Tablet] 300 mg PO DAILY 05/20/15 RX: Hydrocodone/Acetaminophen [[place] 10-325 mg Tablet] 1 tab PO QID PRN RX: Loratadine [Claritin] 10 mg PO DAILY 05/20/15 RX: Sitagliptin Phos/Metformin HCl [Janumet 50-1,000 mg Tablet] 1 tab PO BID RX: Tramadol HCl [Ultram 50 mg Tablet] 50 mg PO Q6HP PRN #40 tablet 09/22/16 RX: Amitriptyline HCl [Elavil 25 mg Tablet] 25 mg PO QHS 10/03/16 RX: Tiotropium [place] [Spiriva Respimat] 2 puff IH DAILY 10/03/16 Furosemide [Lasix 20 mg Tablet] 20 mg PO QAM #30 tablet 10/05/16 RX: Diltiazem HCl [Cardizem Cd 240 mg Capsule.cr] 240 mg PO DAILY@1200 #30 capsule.cr 10/05/16 RX: Prednisone 10 mg PO DAILY #39 tablet 10/05/16 Allergies/Adverse Reactions: amoxicillin [Amoxicillin] Allergy (Unknown, Verified 05/20/15 13:19) esomeprazole magnesium [From Nexium] Allergy (Unknown, Verified 05/20/15 13:19) Physical Exam Vital Signs: Temp Pulse Resp BP Pulse Ox 98.0 F 19 150/127 H 99 10/03/16 20:40 10/03/16 21:41 10/03/16 21:41 10/03/16 21:41 Results Impressions: Chest/Abdomen CTA 10/03/16 15:23 IMPRESSION: 1. There is no evidence of pulmonary emboli. 2. There is a moderate right pleural effusion and small left pleural effusion. 3. There is a 7 mm subpleural nodule on the left. Assessment & Plan - Diagnosis (2) Atrial fibrillation with RVR Is this a current diagnosis for this admission?: YesPlan: Wean from Cardizem drip. Serial troponin. Magnesium and TSH are pending. I have strongly encouraged patient not to get out of bed without notifying staff , to avoid a fall with injury. Knee high SCDs for DVT prophylaxis, along with subcutaneous Lovenox. Impression and plans were discussed with and patient, both of whom concur. Time spent in evaluation and management of patient: 68 minutes. Initial demand by for patient to be transferred to [facility], but, per ER MD, no beds available. Please see notes by ER MD. (3) Elevated LFTs Is this a current diagnosis for this admission?: YesPlan: Gradually decreasing. Suspect due to recent hematoma incision and drainage. Outpatient follow-up. (4) Elevated troponin Is this a current diagnosis for this admission?: YesPlan: No evidence of acute coronary syndrome. Likely secondary to atrial fibrillation with rapid ventricular response. 2 more troponin levels. (5) Nodule of left lung Is this a current diagnosis for this admission?: YesPlan: Strongly encouraged patient and , in layperson's terms, to make sure that follow-up of this nodule is performed by his physicians, to ensure the nodule is not cancer. (6) Pleural effusion on left Is this a current diagnosis for this admission?: YesPlan: Outpatient follow-up. (7) Pleural effusion on right Is this a current diagnosis for this admission?: YesPlan: Outpatient follow-up. (8) Thrombocytopenia Is this a current diagnosis for this admission?: YesPlan: Suspect due to recent incision and drainage of his hematoma. Follow-up CBC. (9) Anemia Qualifiers: Anemia type: unspecified type Qualified Code(s): D64.9 - Anemia, unspecified Is this a current diagnosis for this admission?: YesPlan: Chronic problem. Follow-up CBC with differential. No need for transfusion at present time. Outpatient follow-up and evaluation. (10) Diabetes mellitus type 2 in nonobese Is this a current diagnosis for this admission?: YesPlan: Diabetic cardiac diet. Accu-Cheks with appropriate sliding scale coverage. Resume home medications as appropriate once these have been determined and reviewed. (11) HLD (hyperlipidemia) Qualifiers: Hyperlipidemia type: unspecified Qualified Code(s): E78.5 - Hyperlipidemia, unspecified Is this a current diagnosis for this admission?: YesPlan: Resume home medications as appropriate once these have been determined and reviewed.
[2016-10-03] MEDS ORDERED: ZOLPIDEM TARTRATE 5 MG TABLET PO PRN (22:37)
[2016-10-03] MEDS ORDERED: ATORVASTATIN CALCIUM 40 MG TABLET PO ONE (23:00)
[2016-10-03] MEDS: OXYCODONE HCL IR 5 MG TABLET PO PRN (23:18)
[2016-10-03] MEDS: MAGNESIUM SULFATE/D5W 1 GM/100 ML RTUPB IV SCH (23:20)
[2016-10-04] MEDS: MAGNESIUM SULFATE/D5W 1 GM/100 ML RTUPB IV SCH (00:18)
[2016-10-04] MEDS: ACETAMINOPHEN 325 MG TABLET PO PRN ×2 (00:26→09:06)
[2016-10-04] MEDS ORDERED: MAGNESIUM SULFATE/D5W 1 GM/100 ML RTUPB IV ONE (04:15)
[2016-10-04 04:36] LABS: ABSOLUTE BASOPHILS # (AUTO) 0.1 10^3/uL (0.0-0.2); ABSOLUTE EOSINOPHILS # (AUTO) 0.1 10^3/uL (0.0-0.6); ABSOLUTE LYMPHOCYTES (AUTO) 0.9 10^3/uL (0.5-4.7); ABSOLUTE MONOCYTES (AUTO) 0.9 10^3/uL (0.1-1.4); ABSOLUTE NEUT (AUTO) 6.3 10^3/uL (1.7-8.2); BASOPHILS % (AUTO) 0.7 % (0-2); EOSINOPHILS % (AUTO) 1.6 % (0-6); HEMATOCRIT 35.2 % (37.9-51.0); HEMOGLOBIN 11.2 g/dL (13.5-17.0); HGB HCT DIFFERENCE -1.6; LYMPHOCYTES % (AUTO) 10.9 % (13-45); MEAN CORPUSCULAR HEMOGLOBIN 27.3 pg (27.0-33.4); MEAN CORPUSCULAR HGB CONC 31.7 g/dL (32.0-36.0); MEAN CORPUSCULAR VOLUME 86 fl (80-97); MONOCYTES % (AUTO) 11.3 % (3-13); RED BLOOD COUNT 4.09 10^6/uL (4.35-5.55); RED CELL DISTRIBUTION WIDTH 15.4 % (11.5-14.0); SEGMENTED NEUTROPHILS % (AUTO) 75.5 % (42-78); WHITE BLOOD COUNT 8.4 10^3/uL (4.0-10.5)
[2016-10-04 04:56] LABS: ANION GAP 12 (5-19); BLOOD UREA NITROGEN 16 mg/dL (7-20); CALCIUM 9.5 mg/dL (8.4-10.2); CARBON DIOXIDE 27 mmol/L (22-30); CHLORIDE 99 mmol/L (98-107); CREATININE RESULT 0.95 mg/dL (0.52-1.25); GLUCOSE 175 mg/dL (75-110); POTASSIUM 4.2 mmol/L (3.6-5.0); SODIUM 137.7 mmol/L (137-145)
[2016-10-04] MEDS: OXYCODONE HCL IR 5 MG TABLET PO PRN ×3 (05:40→23:36)
[2016-10-04] MEDS: ENOXAPARIN SODIUM INJ 40 MG/0.4 ML DISP.SYRIN SUBCUT SCH (08:47)
[2016-10-04] MEDS: LORATADINE 10 MG TABLET PO SCH (09:03)
[2016-10-04] MEDS: DOCUSATE SODIUM 100 MG CAPSULE PO SCH ×2 (09:03→17:10)
--- NOTE | 2016-10-04 09:16 | Physician Advisory Note ---
Physician Advisor ProgressNote .: [place] [facility] for this [facility]. Physician Advisor Statement: Nice documentation of co-morbidities so far, overall. Please document: 1. type of underlying Afib - Paroxysmal? Persistent? 2. Status/plan - A. If pt is felt today to be sufficiently improved for transition to po meds & d/c today, keep as Outpt Obs. B. If pt is felt today to require transfer to another hospital for more specialized care, & can leave before MN tonight, keep as Outpt Obs. C. If pt is felt today to require continued care & monitoring, with or without transfer occurring after MN tonight, please change to Inpt status after documenting continued concerns, such as: "Pt with continued concerning dysrrhythmias despite IV dilt gtt & electrolyte replacement, needs additional medication adjustments w/close monitoring of response & continued monitoring of lytes/____ for at least a 2nd MN to stabilize heart rhythm/rate sufficiently for safe d/c." Status discussion: Medicare pt w/___ Afib, HTN, HLD, COPD, DM-2, CAD/stent, LE DVT in distant past , Lt thigh hematoma due to Eliquis in recent past w/wound vac still present, brought in 6/5 PM due to SOB/MURO w/mild exertion, found to be in Afib RVR. Initial HR 110s, RR20s, K 4.2, trop I 0.078. Attending ordered Mag level, IV dilt gtt, IV Mag, amlodipine, tele, f/u labs. Appropriately brought in as Outpt Obs, given the usual lack of clarity about how quickly he might be able to transition to po tx & go home. After 1st MN, nursing note documents that, despite pt being on dilt gtt still, at 03:22 pt had 12 beat run of Vtach, & had continued to be in Afib w/rate 90s- 100s w/freq multifocal PVC's, although asymptomatic w/them. Thrombocytopenia appears mildly worse, Mag has been nicely replaced, which ought to help encourage pt's heart to convert to NSR if it is going to without further intervention. Thanks! CK
[2016-10-04] MEDS ORDERED: AMLODIPINE BESYLATE 5 MG TABLET PO SCH (10:00)
[2016-10-04] MEDS ORDERED: (PENDING PHARMACY ID) (Tiotropium Bromide [Spiriva Respimat] 2 PUFF) IH SCH (10:00)
[2016-10-04] MEDS: IPRATROPIUM/ALBUTEROL 0.5-2.5 MG/3 ML AMPUL NEB PRN ×3 (10:11→20:02)
[2016-10-04] MEDS ORDERED: METHYLPREDNISOLONE INJ 40 MG/1 ML SDV IV ONE (10:15)
[2016-10-04] MEDS: FUROSEMIDE 40 MG TABLET PO SCH ×2 (10:59→17:10)
[2016-10-04] MEDS: TRAMADOL HCL 50 MG TABLET PO PRN ×2 (11:00→21:18)
[2016-10-04] MEDS ORDERED: DILTIAZEM HCL 240 MG CAPSULE.CR PO SCH (12:00)
--- NOTE | 2016-10-04 12:16 | EKG REPORT ---
SEVERITY:- ABNORMAL ECG - ATRIAL FLUTTER, A-RATE 319 MULTIFORM VENTRICULAR PREMATURE COMPLEXES NONSPECIFIC INTRAVENTRICULAR CONDUCTION DELAY ANTERIOR INFARCT, AGE INDETERMINATE : Confirmed by: Deanna Infante MD 04-Oct-2016 12:15:56
[2016-10-04] MEDS: INSULIN LISPRO 100 UNIT/ML 3 ML VIAL SUBCUT PRN ×3 (12:27→21:16)
[2016-10-04] MEDS: METHYLPREDNISOLONE INJ 40 MG/1 ML SDV IV SCH ×2 (14:38→21:16)
--- NOTE | 2016-10-04 16:19 | PDOC PROGRESS REPORT ---
Subjective Progress Note for:: 10/04/16 Subjective:: Complains of shortness of breath and wheezing Physical Exam Vital Signs: Temp Pulse Resp BP Pulse Ox 98.3 F 95 22 H 130/78 H 99 10/04/16 04:01 10/04/16 14:00 10/04/16 10:11 10/04/16 14:01 10/04/16 04:01 Intake & Output 10/03/16 10/04/16 10/05/16 06:59 06:59 06:59 Intake Total 992 342 Output Total 350 275 Balance 642 67 Weight 83.7 kg General appearance: PRESENT: no acute distress Eye exam: PRESENT: conjunctiva pink. ABSENT: scleral icterus Ear exam: PRESENT: normal external ear exam Mouth exam: PRESENT: moist, tongue midline Neck exam: ABSENT: JVD Respiratory exam: PRESENT: wheezes - Scattered expiratory wheezes.. ABSENT: rales, rhonchi Cardiovascular exam: PRESENT: irregular rhythm. ABSENT: diastolic murmur, rubs , systolic murmur GI/Abdominal exam: PRESENT: normal bowel sounds, soft. ABSENT: distended, guarding, mass, organolmegaly, rebound, tenderness Extremities exam: ABSENT: calf tenderness, clubbing, pedal edema Neurological exam: PRESENT: alert, awake, oriented to person, oriented to place , oriented to time, oriented to situation, CN II-XII grossly intact. ABSENT: motor sensory deficit Psychiatric exam: PRESENT: appropriate affect Skin exam: PRESENT: dry, intact, warm. ABSENT: cyanosis, rash Results Laboratory Results: 10/04/16 04:15 10/04/16 04:15 10/04/16 10/04/16 04:15 04:15 WBC 8.4 RBC 4.09 L Hgb 11.2 L Hct 35.2 L MCV 86 MCH 27.3 MCHC 31.7 L RDW 15.4 H Plt Count 112 L Seg Neutrophils % 75.5 Lymphocytes % 10.9 L Monocytes % 11.3 Eosinophils % 1.6 Basophils % 0.7 Absolute Neutrophils 6.3 Absolute Lymphocytes 0.9 Absolute Monocytes 0.9 Absolute Eosinophils 0.1 Absolute Basophils 0.1 Sodium 137.7 Potassium 4.2 Chloride 99 Carbon Dioxide 27 Anion Gap 12 BUN 16 Creatinine 0.95 Est GFR ( Amer) > 60 Est GFR (Non-Af Amer) > 60 Glucose 175 H Calcium 9.5 Magnesium 2.0 10/04/16 10/04/16 01:56 08:34 Troponin I 0.082 0.083 Impressions: Chest/Abdomen CTA 10/03/16 15:23 IMPRESSION: 1. There is no evidence of pulmonary emboli. 2. There is a moderate right pleural effusion and small left pleural effusion. 3. There is a 7 mm subpleural nodule on the left. Assessment & Plan - Diagnosis (1) Atrial fibrillation with RVR Is this a current diagnosis for this admission?: YesPlan: The patient's atrial fibrillation has improved. Will switch from IV diltiazem to p.o. diltiazem. Patient however has had elevated troponins which may be rate related. (2) Elevated troponin Is this a current diagnosis for this admission?: YesPlan: Likely this is secondary to atrial fibrillation with rapid ventricular rate. (3) Pleural effusion Is this a current diagnosis for this admission?: YesPlan: Unclear if there may be a component of congestive heart failure given the pleural effusions and his shortness of breath. Will check an echocardiogram. (4) Pulmonary nodule Is this a current diagnosis for this admission?: YesPlan: Aware of this pulmonary nodule and they have been following it for greater than a year. (5) COPD (chronic obstructive pulmonary disease) Is this a current diagnosis for this admission?: YesPlan: Patient has acute exacerbation of COPD we will start the patient on IV Solu- Medrol. Will continue with nebulizers as needed. (6) Diabetes mellitus type 2 in nonobese Is this a current diagnosis for this admission?: YesPlan: We will cover with sliding scale insulin. (7) HLD (hyperlipidemia) Qualifiers: Hyperlipidemia type: unspecified Qualified Code(s): E78.5 - Hyperlipidemia, unspecified Is this a current diagnosis for this admission?: YesPlan: Continue Lipitor. - Time Time Spent with patient: 25-34 minutes - Inpatient Certification Medical Necessity: Need Close Monitoring Due to Risk of Patient Decompensation - Plan Summary Plan Summary: Patient will be changed to an inpatient given his acute COPD exacerbation. Patient continues with shortness of breath because of this and the wheezing needs IV Solu-Medrol for treatment of his acute exacerbation.
[2016-10-04] MEDS ORDERED: ATORVASTATIN CALCIUM 40 MG TABLET PO SCH (22:00)
[2016-10-04] MEDS ORDERED: AMITRIPTYLINE HCL 25 MG TABLET PO SCH (22:00)
[2016-10-05] MEDS: IPRATROPIUM/ALBUTEROL 0.5-2.5 MG/3 ML AMPUL NEB PRN ×3 (00:15→10:37)
[2016-10-05] MEDS: TRAMADOL HCL 50 MG TABLET PO PRN ×2 (02:56→09:23)
[2016-10-05 04:57] LABS: HEMATOCRIT 33.6 % (37.9-51.0); HEMOGLOBIN 10.8 g/dL (13.5-17.0); HGB HCT DIFFERENCE -1.2; MEAN CORPUSCULAR HEMOGLOBIN 27.5 pg (27.0-33.4); MEAN CORPUSCULAR HGB CONC 32.3 g/dL (32.0-36.0); MEAN CORPUSCULAR VOLUME 85 fl (80-97); RED BLOOD COUNT 3.94 10^6/uL (4.35-5.55); RED CELL DISTRIBUTION WIDTH 15.7 % (11.5-14.0); WHITE BLOOD COUNT 6.2 10^3/uL (4.0-10.5)
[2016-10-05 05:13] LABS: ANION GAP 12 (5-19); BLOOD UREA NITROGEN 20 mg/dL (7-20); CALCIUM 9.3 mg/dL (8.4-10.2); CARBON DIOXIDE 28 mmol/L (22-30); CHLORIDE 94 mmol/L (98-107); CREATININE RESULT 1.06 mg/dL (0.52-1.25); GLUCOSE 369 mg/dL (75-110); POTASSIUM 3.9 mmol/L (3.6-5.0); SODIUM 134.4 mmol/L (137-145)
[2016-10-05] MEDS: OXYCODONE HCL IR 5 MG TABLET PO PRN (05:40)
[2016-10-05] MEDS: METHYLPREDNISOLONE INJ 40 MG/1 ML SDV IV SCH (05:40)
[2016-10-05 05:47] LABS: BASOPHILS % (MANUAL) 0 % (0-2); EOSINOPHILS % (MANUAL) 0 % (0-6); LYMPHOCYTES % (MANUAL) 4 % (13-45); TOTAL CELLS COUNTED 100
[2016-10-05 05:48] LABS: ANISOCYTOSIS SLIGHT; OVALOCYTES SLIGHT; POIKILOCYTOSIS SLIGHT; TEAR DROP CELLS SLIGHT; TOXIC GRANULATION SLIGHT
[2016-10-05] MEDS: INSULIN LISPRO 100 UNIT/ML 3 ML VIAL SUBCUT PRN (07:47)
[2016-10-05 08:21] VITALS: BP 138/79
--- NOTE | 2016-10-05 09:03 | XCELERA REPORT ---
[address] [address] Transthoracic Echocardiogram Report Name: LINO SCRUGGS Age: 61 yrs Gender: Male : 1955 Patient Status: Inpatient Patient Location: [id number]\S\305\S\A Study Date: 10/04/2016 10:06 AM Height: 68 in Weight: 184 lb BSA: 2.0 m2 Procedure: A complete two-dimensional transthoracic echocardiogram was performed (2D, M-mode, spectral and color flow Doppler). The study was technically adequate with some images being suboptimal in quality. Reason For Study: dyspnea, effusion Ordering Physician: JENI ROGERS Performed By: Aracelis Reddy Interpretation Summary Left ventricular systolic function is mild to moderately reduced. The Ejection Fraction estimate is 40-45% There is normal left ventricular wall thickness. The left ventricle is grossly normal size. Doppler measurements suggest pseudonormalized left ventricular relaxation, which is associated with grade II/IV or mild to moderate diastolic dysfunction Apical wall motion abnormality may reflect pacemaker activation The right ventricle is mildly dilated. The right atrium is mildly dilated. The left atrium is mildly dilated. There is no mitral valve stenosis. There is a mild amount of mitral regurgitation There is no aortic valve stenosis No aortic regurgitation is present. There is a trace to mild amount of tricuspid regurgitation There is mild pulmonary hypertension by echo Right ventricular systolic pressure is estimated to be elevated at 30- 40mmHg. The aortic root is not well visualized but is probably normal size. The inferior vena cava appeared normal and decreased < 50% with respiration (RAP 10-15 mmHg) There is no pericardial effusion. MMode/2D Measurements \T\ Calculations RVDd: 3.2 cm LVIDd: 5.1 cm FS: 29.7 % Ao root diam: 2.7 cm IVSd: 0.79 cm LVIDs: 3.6 cm EDV(Teich): 123.9 ml LVPWd: 0.80 cm ESV(Teich): 54.0 ml Ao root area: 5.6 cm2 EF(Teich): 56.4 % LA dimension: 4.0 cm Doppler Measurements \T\ Calculations MV E max wan: MV P1/2t max wan: Ao V2 max: LV V1 max P.4 cm/sec 119.9 cm/sec 152.0 cm/sec 7.3 mmHg MV A max wan: MV P1/2t: 49.3 msec Ao max PG: LV V1 max: 39.0 cm/sec 9.2 mmHg 135.2 cm/sec MV E/A: 3.1 MVA(P1/2t): 4.5 cm2 MV dec slope: 712.6 cm/sec2 MV dec time: 0.16 sec PA V2 max: TR max wan: 59.7 cm/sec 270.1 cm/sec PA max PG: TR max P.2 mmHg 1.4 mmHg Left Ventricle The left ventricle is grossly normal size. There is normal left ventricular wall thickness. Left ventricular systolic function is mild to moderately reduced. The Ejection Fraction estimate is 40-45%. Doppler measurements suggest pseudonormalized left ventricular relaxation, which is associated with grade II/IV or mild to moderate diastolic dysfunction. Apical wall motion abnormality may reflect pacemaker activation. Right Ventricle The right ventricle is mildly dilated. The right ventricular systolic function is normal. Atria The right atrium is mildly dilated. The left atrium is mildly dilated. Interarterial septum not well visualized and not well dopplered. Cannot comment on ASD/PFO presence. Mitral Valve The mitral valve is grossly normal. There is no mitral valve stenosis. There is a mild amount of mitral regurgitation. Aortic Valve The aortic valve is not well visualized secondary to technical limitations. There is no aortic valve stenosis. No aortic regurgitation is present. Tricuspid Valve The tricuspid valve is not well visualized, but is grossly normal. There is no tricuspid stenosis. There is a trace to mild amount of tricuspid regurgitation. There is mild pulmonary hypertension by echo. Right ventricular systolic pressure is estimated to be elevated at 30-40mmHg. Pulmonic Valve The pulmonic valve is not well visualized. Great Vessels The aortic root is not well visualized but is probably normal size. The inferior vena cava appeared normal and decreased < 50% with respiration (RAP 10-15 mmHg). Effusions There is no pericardial effusion. : JENI ROGERS > Kacey Sousa
[2016-10-05] MEDS: DOCUSATE SODIUM 100 MG CAPSULE PO SCH (09:22)
[2016-10-05] MEDS: FUROSEMIDE 40 MG TABLET PO SCH (09:23)
[2016-10-05] MEDS: LORATADINE 10 MG TABLET PO SCH (09:24)
[2016-10-05] MEDS: ENOXAPARIN SODIUM INJ 40 MG/0.4 ML DISP.SYRIN SUBCUT SCH (09:24)
--- NOTE | 2016-10-05 11:50 | PDOC DISCHARGE SUMMARY ---
General - Admit/Disc Date/PCP Admission Date/Primary Care Provider: 10/03/16 22:04 Discharge Date: 10/05/16 - Discharge Diagnosis (1) Atrial fibrillation with RVR Is this a current diagnosis for this admission?: YesSummary: Treated with IV exam and converted over to p.o. diltiazem. (2) Elevated troponin Is this a current diagnosis for this admission?: YesSummary: Likely secondary to elevated heart rate. (3) Pleural effusion Is this a current diagnosis for this admission?: YesSummary: Most likely secondary to his systolic congestive heart failure. (4) Pulmonary nodule Is this a current diagnosis for this admission?: YesSummary: he is aware of the need for repeat chest CT in 6-12 months. (5) COPD (chronic obstructive pulmonary disease) Is this a current diagnosis for this admission?: YesSummary: Treated initially with IV Solu-Medrol and being sent home with a prednisone taper. (6) Diabetes mellitus type 2 in nonobese Is this a current diagnosis for this admission?: Yes (7) HLD (hyperlipidemia) Is this a current diagnosis for this admission?: Yes (8) Congestive heart failure Is this a current diagnosis for this admission?: YesSummary: Echocardiogram shows ejection fraction of 40-45% consistent with acute on chronic systolic congestive heart failure. Patient sent home on oral Lasix. - Additional Information Resuscitation Status: Full Code Discharge Diet: Cardiac, Diabetic Discharge Activity: Activity As Tolerated Home Medications: Atorvastatin Calcium [Lipitor 40 mg Tablet] 40 mg PO QHS 09/27/11 Zolpidem Tartrate [Ambien 10 mg Tablet] 10 mg PO QHS 09/27/11 Bupropion HCl [Wellbutrin Xl 300mg 24hr Tablet] 300 mg PO DAILY 05/20/15 Hydrocodone/Acetaminophen [Merrill 10-325 mg Tablet] 1 tab PO QID PRN 05/20/15 Loratadine [Claritin] 10 mg PO DAILY 05/20/15 Sitagliptin Phos/Metformin HCl [Janumet 50-1,000 mg Tablet] 1 tab PO BID Tramadol HCl [Ultram 50 mg Tablet] 50 mg PO Q6HP PRN #40 tablet 09/22/16 Amitriptyline HCl [Elavil 25 mg Tablet] 25 mg PO QHS 10/03/16 Tiotropium [place]n [Spiriva Respimat] 2 puff IH DAILY 10/03/16 Diltiazem HCl [Cardizem Cd 240 mg Capsule.cr] 240 mg PO DAILY@1200 #30 capsule.cr 10/05/16 Furosemide [Lasix 20 mg Tablet] 20 mg PO QAM #30 tablet 10/05/16 Prednisone 10 mg PO DAILY #39 tablet 10/05/16 History of Present Illness History of Present Illness: LINO SCRUGGS is a 61 year old male presented with acute onset of shortness of breath. Patient was found to be in atrial fibrillation with a rapid ventricular rate. Patient started on IV diltiazem with rate control improvement in his respiratory status. Patient had been on Eliquis previously but was stopped because of the large left thigh hematoma which has required a wound VAC. Hospital Course Hospital Course: 61-year-old gentleman who presented with acute onset of shortness of breath and was found to have atrial fibrillation with rapid ventricular rate. Patient was put on IV diltiazem with rate control and improvement in his shortness of breath. Patient was eventually switched over to oral diltiazem with rate control. Patient has a history of atrial fibrillation and has had cardioversion 2 times previously. Patient also was noted to have an acute COPD exacerbation and was put on IV Solu-Medrol and nebulizers. This improved also and was converted over to an oral prednisone taper to go home with. Patient also was noted to have a pleural effusion most likely secondary to congestive heart failure. Patient had an echocardiogram which showed him to have an ejection fraction of 40-45%. The patient also did have positive troponins but they remain flat. This was almost certainly secondary to his atrial fibrillation with rapid ventricular rate. Patient's other medical problems were stable during this hospitalization. Physical Exam Vital Signs: Temp Pulse Resp BP Pulse Ox 97.7 F 98 20 138/79 H 96 10/05/16 10:47 10/05/16 10:47 10/05/16 10:47 10/05/16 10:47 10/05/16 10:47 Intake & Output 10/04/16 10/05/16 10/06/16 06:59 06:59 06:59 Intake Total 992 934 Output Total 350 1075 Balance 642 -141 Weight 83.7 kg 84.2 kg General appearance: PRESENT: no acute distress Eye exam: PRESENT: conjunctiva pink. ABSENT: scleral icterus Ear exam: PRESENT: normal external ear exam Mouth exam: PRESENT: moist, tongue midline Neck exam: ABSENT: JVD Respiratory exam: PRESENT: clear to auscultation simone. ABSENT: rales, rhonchi, wheezes Cardiovascular exam: PRESENT: irregular rhythm. ABSENT: diastolic murmur, rubs , systolic murmur Vascular exam: PRESENT: normal capillary refill GI/Abdominal exam: PRESENT: normal bowel sounds, soft. ABSENT: distended, guarding, mass, organolmegaly, rebound, tenderness Extremities exam: PRESENT: other - Wound VAC in place on the left thigh.. ABSENT: calf tenderness, clubbing, pedal edema Neurological exam: PRESENT: alert, awake, oriented to person, oriented to place , oriented to time, oriented to situation, CN II-XII grossly intact. ABSENT: motor sensory deficit Psychiatric exam: PRESENT: appropriate affect Skin exam: PRESENT: dry, intact, warm. ABSENT: cyanosis, rash Results Laboratory Results: 10/05/16 04:00 10/05/16 04:00 10/05/16 10/05/16 04:00 04:00 WBC 6.2 RBC 3.94 L Hgb 10.8 L Hct 33.6 L MCV 85 MCH 27.5 MCHC 32.3 RDW 15.7 H Plt Count 117 L Seg Neutrophils % Not Reportable Lymphocytes % Not Reportable Monocytes % Not Reportable Eosinophils % Not Reportable Basophils % Not Reportable Absolute Neutrophils Not Reportable Absolute Lymphocytes Not Reportable Absolute Monocytes Not Reportable Absolute Eosinophils Not Reportable Absolute Basophils Not Reportable Sodium 134.4 L Potassium 3.9 Chloride 94 L Carbon Dioxide 28 Anion Gap 12 BUN 20 Creatinine 1.06 Est GFR ( Amer) > 60 Est GFR (Non-Af Amer) > 60 Glucose 369 H Calcium 9.3 10/04/16 10/04/16 01:56 08:34 Troponin I 0.082 0.083 Impressions: Chest/Abdomen CTA 10/03/16 15:23 IMPRESSION: 1. There is no evidence of pulmonary emboli. 2. There is a moderate right pleural effusion and small left pleural effusion. 3. There is a 7 mm subpleural nodule on the left. Qualifiers PATEINT BEING DISCHARGED WITH ANY OF THE FOLLOWING DIAGNOSIS?: Heart Failure HF Pt with Afib discharged with Warfarin?: No Reason(s) for not prescribing Warfarin:: Procedure Contraindicated HF Pt discharged on evidence-based Beta Cyril:: No Reason(s) for not prescribing evidence-based Beta Cyril:: Drug intolerance Plan Discharge Plan: he is discharged home in stable condition. Will follow up with his primary care in 2 weeks. Follow-up with cardiology and 2-3 weeks. Time Spent: Greater than 30 Minutes
== END 2016-10-05 11:37 | disposition home or self-care (01) | DRG 308 ==
LOC: ER 15:18 → INTOOBSV 21:52 → EH 21:52 → UNDOADMOB 21:52 → EH 22:04 → OBSVTOIN 22:04 → 3N 22:45
PROVIDERS: ADMIT Family Medicine; ATTEND Family Medicine
PROC: 3E0F73Z Introduction of Anti-inflammatory into Respiratory Tract, Via Natural or Artificial Opening (ICD-10-PCS; principal; 2016-10-04)
DX: I48.91 Unspecified atrial fibrillation (principal); I50.23 Acute on chronic systolic (congestive) heart failure; J44.1 Chronic obstructive pulmonary disease with (acute) exacerbation; R91.1 Solitary pulmonary nodule; E11.9 Type 2 diabetes mellitus without complications; E78.5 Hyperlipidemia, unspecified; I11.0 Hypertensive heart disease with heart failure; M19.90 Unspecified osteoarthritis, unspecified site; F41.9 Anxiety disorder, unspecified; F32.9 Major depressive disorder, single episode, unspecified; K21.9 Gastro-esophageal reflux disease without esophagitis; F41.1 Generalized anxiety disorder; D69.6 Thrombocytopenia, unspecified; Z95.5 Presence of coronary angioplasty implant and graft; Z87.891 Personal history of nicotine dependence; Z86.718 Personal history of other venous thrombosis and embolism; Z95.0 Presence of cardiac pacemaker; Z88.1 Allergy status to other antibiotic agents; Z88.8 Allergy status to other drugs, medicaments and biological substances
CPT/HCPCS: 36415; 71275; 80048; 80053; 82550; 82553; 82962; 83735; 84443; 84484; 85025; 93005; 93010; 93306; 94640; 96365; 96366; 96375; 99291; G0378; J1815; J2270; J2920; J3475; J3490; J7620

== ENCOUNTER → 2016-12-13 | Outpatient (CLI) | payer MEDICARE, OTHER ==
--- NOTE | 2016-12-13 16:44 | RADIOLOGY REPORT (SQ) ---
EXAM DESCRIPTION: VENOUS UNILATERAL LOWER COMPLETED DATE/TIME: 12/13/2016 4:33 pm REASON FOR STUDY: LLE M79.606 M79.606 PAIN IN LEG, UNSPECIFIED COMPARISON: None. TECHNIQUE: Dynamic and static bloom scale and color images acquired of the left leg venous system. Se lected spectral images acquired with additional compression and augmentation maneuvers. The contralat eral common femoral vein and saphenofemoral junction were also imaged. Images stored on PACS. LIMITATIONS: None. FINDINGS: COMMON FEMORAL: Normal phasicity, compression and augmentation. No visualized echogenic ma terial on bloom scale. No defects on color images. FEMORAL: Normal compression and augmentation. No visualized echogenic material on bloom scale. No defe cts on color images. POPLITEAL: Normal compression, augmentation. No visualized echogenic material on bloom scale. No defec ts on color images. CALF VESSELS: Normal compression, augmentation. No visualized echogenic material on bloom scale. No de fects on color images. GSV and SSV: Normal compression, augmentation. No visualized echogenic material on bloom scale. No def ects on color images. ANY DEEP VENOUS INSUFFICIENCY: Not evaluated. ANY EVIDENCE OF POPLITEAL CYST: No. OTHER: No other significant finding. CONTRALATERAL COMMON FEMORAL VEIN AND SAPHENOFEMORAL JUNCTION: Normal phasicity, compression and augmentation. No visualized echogenic material on bloom scale. No de fects on color images. IMPRESSION: NO EVIDENCE OF DVT OR SVT IN THE LEFT LEG. TECHNICAL DOCUMENTATION: JOB ID: [id number] [employer]- All Rights Reserved
== END ==
LOC: SP 15:27
PROVIDERS: ATTEND Internal Medicine Cardiovascular Disease
DX: M79.662 Pain in left lower leg (principal); R60.9 Edema, unspecified
CPT/HCPCS: 93971

== ENCOUNTER 2017-01-01 11:13 | Emergency (ER) | payer MEDICARE, OTHER ==
[2017-01-01] MEDS ORDERED: FENTANYL CITRATE INJ/PF 100 MCG/2 ML AMPUL ONE (11:19)
[2017-01-01] MEDS ORDERED: MIDAZOLAM 2 MG/2 ML INJ ONE (11:19)
[2017-01-01] MEDS ORDERED: AMIODARONE HCL INJ 150 MG/3 ML VIAL IV ONE (11:21)
[2017-01-01] MEDS ORDERED: MIDAZOLAM 2 MG/2 ML INJ IV ONE (11:30)
[2017-01-01] MEDS ORDERED: FENTANYL CITRATE INJ/PF 100 MCG/2 ML AMPUL IV ONE (11:30)
[2017-01-01] MEDS ORDERED: AMIODARONE HCL 150 MG in DEXTROSE 5%-WATER 100 ML IV ONE (11:31)
[2017-01-01] MEDS ORDERED: DEXTROSE 5%-WATER 500 ML with AMIODARONE HCL 900 MG IV PRN ×2 (11:34)
--- NOTE | 2017-01-01 11:39 | ER Document Report ---
ED Cardiac - General Chief Complaint: Dizziness Stated Complaint: RAPID HEART RATE Time Seen by Provider: 01/01/17 11:29 Notes: The patient is a 61-year-old male, past medical history CHF (EF 45%), atrial fibrillation, thrombocytopenia, presents by EMS after he was beginning to feel slightly lightheaded and feeling his heart racing starting at 10 AM. His electronics commodity manager is Dr. Khan at [facility]. He has an appointment with [facility] hematology in 2 days because his platelets were 52,000. EMS arrived and attempted 6, 12, 12 mg adenosine, 500 mL NS and 25 mg diltiazem without any change in his tachycardia. BP remained 120's/80's during transport. Patient is feeling mild shortness of breath with a cough, but denies chest pain , fevers, nausea, vomiting, syncope, headache, numbness or tingling. TRAVEL OUTSIDE OF THE [place] IN LAST 30 DAYS: No - Related Data Allergies/Adverse Reactions: amoxicillin [Amoxicillin] Allergy (Unknown, Verified 05/20/15 13:19) esomeprazole magnesium [From Nexium] Allergy (Unknown, Verified 05/20/15 13:19) furosemide [From Lasix] Allergy (Verified 01/01/17 14:24) gabapentin Allergy (Verified 01/01/17 14:24) pregabalin [From Lyrica] Allergy (Verified 01/01/17 14:24) Home Medications: Current Home Medications Albuterol Sulfate [Ventolin HFA MDI 18 GM] 2 puff IH Q4HP PRN 01/01/17 [History] Amiodarone HCl [Cordarone 200 mg Tablet] 200 mg PO DAILY 01/01/17 [History] Atorvastatin Calcium [Lipitor 40 mg Tablet] 40 mg PO QHS 01/01/17 [History] Budesonide/Formoterol Fumarate [Symbicort Hfa 160-4.5 Mcg Inhaler 6 gm] 2 puff IH Q12 01/01/17 [History] Bumetanide [Bumex 2 mg Tablet] 2 mg PO Q12 01/01/17 [History] Diltiazem HCl [Diltiazem ER] 240 mg PO NOON 01/01/17 [History] Fenofibric Acid (Choline) [Fenofibric Acid] 135 mg PO DAILY 01/01/17 [History] Furosemide [Lasix 20 mg Tablet] 20 mg PO QAM 01/01/17 [History] Hydrocodone Bit/Acetaminophen [Hydrocodon-Acetaminophn 10-325] 1 tab PO Q12HP PRN 01/01/17 [History] Hydrocodone Bitartrate [Hysingla ER] 20 mg PO DAILY 01/01/17 [History] Insulin Glargine,Hum.rec.anlog [Toujeo Solostar] 10 unit SQ QHS 01/01/17 [ History] Loratadine [Claritin 10 mg Tablet] 10 mg PO DAILY 01/01/17 [History] Magnesium Oxide [Mag-Ox 400 mg Tablet] 800 mg PO DAILY 01/01/17 [History] Metolazone [Zaroxolyn 2.5 Mg Tablet] 2.5 mg PO DAILY 01/01/17 [History] Naloxegol Oxalate [Movantik 25 mg Tablet] 25 mg PO [id number] 01/01/17 [History] Potassium Chloride [Klor-Con 10 Meq Tablet.sa] 10 meq PO Q12 01/01/17 [History] Sitagliptin Phos/Metformin HCl [Janumet 50-1,000 Mg Tablet] 1 tab PO Q12 [History] Tiotropium [place] [Spiriva Respimat] 2 puff IH QAM 01/01/17 [History] Past Medical History - General Information source: Patient, Emergency Med Personnel - Social History Smoking Status: Unknown if Ever Smoked Family History: Reviewed & Not Pertinent - Past Medical History Cardiac Medical History: Reports: Hx Atrial Fibrillation - FIB/FLUT, Hx DVT, Hx Hypercholesterolemia, Hx Hypertension Denies: Hx Congestive Heart Failure, Hx Heart Attack, Hx Pulmonary Embolism Pulmonary Medical History: Reports: Hx COPD Denies: Hx Asthma, Hx Sleep Apnea Neurological Medical History: Denies: Hx Seizures Endocrine Medical History: Reports: Hx Diabetes Mellitus Type 2. Denies: Hx Hyperthyroidism, Hx Hypothyroidism Renal/ Medical History: Denies: Hx Peritoneal Dialysis GI Medical History: Reports: Hx Gastroesophageal Reflux Disease. Denies: Hx Cirrhosis, Hx Hepatitis Musculoskeltal Medical History: Reports Hx Arthritis Psychiatric Medical History: Reports: Hx Depression Infectious Medical History: Denies: Hx Hepatitis Past Surgical History: Reports: Hx Cardiac Surgery - STENT, PACEMAKER NO DEFIB, Hx Coronary Stent - before 1999, Hx Orthopedic Surgery - shoulder and back, Hx Pacemaker, Hx Vascular Surgery - hematoma removal left leg, Other - cardioversion X 2 atrial fib - Immunizations Hx Diphtheria, Pertussis, Tetanus Vaccination: No Hx Pneumococcal Vaccination: 05/01/12 Review of Systems - Review of Systems Notes: REVIEW OF SYSTEMS: CONSTITUTIONAL: -fevers, -chills EENT: -eye pain, -difficulty swallowing, -nasal congestion CARDIOVASCULAR: +palpitations, -chest pain, -syncope. RESPIRATORY: -cough, +SOB GASTROINTESTINAL: -abdominal pain, - nausea, -vomiting, -diarrhea GENITOURINARY: -dysuria, -hematuria MUSCULOSKELETAL: -back pain, -neck pain SKIN: -rash or skin lesions. HEMATOLOGIC: -easy bruising or bleeding. LYMPHATIC: -swollen, enlarged glands. NEUROLOGICAL: -altered mental status or loss of consciousness, -headache, - neurologic symptoms PSYCHIATRIC: -anxiety, -depression. ALL OTHER SYSTEMS REVIEWED AND NEGATIVE. Physical Exam - Vital signs Vitals: Resp 34 H 01/01/17 11:14 - Notes Notes: PHYSICAL EXAMINATION: GENERAL: Mild distress. HEAD: Atraumatic, normocephalic. EYES: Pupils equal round and reactive to light, extraocular movements intact, sclera anicteric, conjunctiva are normal. ENT: nares patent, oropharynx clear without exudates. Moist mucous membranes. NECK: Normal range of motion, supple without lymphadenopathy LUNGS: Mild tachypnea. HEART: Regular rhythm, tachycardic ABDOMEN: Soft, nontender, normoactive bowel sounds. No guarding, no rebound. No masses appreciated. EXTREMITIES: Normal range of motion, no pitting or edema. No cyanosis. NEUROLOGICAL: Cranial nerves grossly intact. Normal speech, normal gait. Normal sensory and motor exams. PSYCH: Normal mood, normal affect. SKIN: Warm, Dry, normal turgor, no rashes or lesions noted. Course - Re-evaluation Re-evalutation: Patient seen immediately on arrival. He was found to be in a wide complex regular tachycardia with a rate of 221. Patient mildly tachypneic and feeling slightly lightheaded. Started amiodarone, but with patient's tachypnea, decision was made to sedate and cardiovert him after verbal consent obtained from patient. Sedation was performed with Versed and fentanyl and patient was defibrillated at 150 J with improvement of his HR to rate-controlled atrial fibrillation. Chest x-ray shows patchy airspace disease. Patient is having cough and his white count is 11, which is above his prior values. Will begin CAP antibiotics to cover for possible pneumonia. 01/01/17 12:24 Placed call to patient's electronics commodity manager, Dr. Khan. The covering Cleaning Validation Consultant is Dr. James. He will consult and is recommending admission to Hospitalists. Pt is requesting transfer to [place] due to continuity of care. He also has an appointment with hematology at [facility] in 2 days to discuss his thrombocytopenia. Patient does not require emergent platelet transfusion at this time because he is not having any active bleeding. Placed call to Transfer Center and awaiting callback from accepting physician. 01/01/17 13:[address] Patel ([facility] Hospitalist) and she has accepted patient. Pt remains stable at this time with BP 120/81 and HR 81, irregular. EMTALA form filled out. 01/01/17 15:42 Pt reevaluated and still stable. Awaiting transportation, which should be in the ER anytime now. - Vital Signs Vital signs: Temp Pulse Resp BP Pulse Ox 14 120/75 96 01/01/17 15:23 01/01/17 15:23 01/01/17 15:23 - Laboratory Result Diagrams: 01/01/17 11:16 01/01/17 11:16 Laboratory results interpreted by me: 01/01/17 01/01/17 01/01/17 11:16 11:16 11:16 WBC 11.4 H RBC 3.12 L Hgb 8.7 L Hct 27.5 L MCHC 31.6 L RDW 18.8 H Plt Count 46 L Lymphocytes % 10.5 L Absolute Neutrophils 8.9 H PT 16.9 H Sodium 135.9 L Chloride 91 L BUN 28 H Creatinine 1.50 H Est GFR ( Amer) 57 L Est GFR (Non-Af Amer) 47 L Glucose 281 H Magnesium 1.5 L Direct Bilirubin 0.7 H Alkaline Phosphatase 151 H Creatine Kinase 29 L NT-Pro-B Natriuret Pep 01/01/17 11:16 WBC RBC Hgb Hct MCHC RDW Plt Count Lymphocytes % Absolute Neutrophils PT Sodium Chloride BUN Creatinine Est GFR ( Amer) Est GFR (Non-Af Amer) Glucose Magnesium Direct Bilirubin Alkaline Phosphatase Creatine Kinase NT-Pro-B Natriuret Pep 2740 H - Diagnostic Test Radiology reviewed: Image reviewed, Reports reviewed Radiology results interpreted by me: CXR: patchy airspace disease, no focal pneumonia - EKG Interpretation by Me Rate: Tachycardia Rhythm: V.Tach When compared to previous EKG there are: Changes noted Additional EKG results interpreted by me: Second EKG performed 6 minutes later after cardioversion: A fib with HR 127. Third EKG performed 12 minutes after cardioversion: A fib with HR 107 Procedures - Additional Procedures Cardioversion/Defib Time performed: 11:17 Additional Procedures: Cardioversion/defib Notes: Patient sedated with fentanyl and Versed after obtaining verbal consent for cardioversion. Patient found to be in a wide-complex tachycardia. 150 J was used to successively cardiovert patient into rate controlled atrial fibrillation. Critical Care Note - Critical Care Note Total time excluding time spent on procedures (mins): 45 Discharge - Discharge Clinical Impression: Wide-complex tachycardia, Thrombocytopenia Pneumonia Qualifiers: Pneumonia type: due to unspecified organism Laterality: unspecified laterality Lung location: unspecified part of lung Qualified Code(s): J18.9 - Pneumonia, unspecified organism Anemia Qualifiers: Anemia type: unspecified type Qualified Code(s): D64.9 - Anemia, unspecified Condition: Stable Disposition: [facility] Referrals: SHELDON HURST MD [Primary Care Provider] - Follow up as needed
--- NOTE | 2017-01-01 12:03 | RADIOLOGY REPORT (SQ) ---
EXAM DESCRIPTION: CHEST SINGLE VIEW COMPLETED DATE/TIME: 01/01/2017 11:41 am REASON FOR STUDY: SOB COMPARISON: CT chest from September. Radiographs from 2015. NUMBER OF VIEWS: One view. TECHNIQUE: Single frontal radiographic view of the chest acquired. LIMITATIONS: External life-support artifact. FINDINGS: LUNGS AND PLEURA: Slight hyperinflation with patchy opacities in the left upper lobe and r ight mid lung zone particularly. Unclear if this is artifact or true airspace disease given overlyin g hardware. No gross pneumothorax. MEDIASTINUM AND HILAR STRUCTURES: No masses. Contour normal. HEART AND VASCULAR STRUCTURES: Heart size likely slightly accentuated by portable technique. BONES: No acute findings. HARDWARE: Left transvenous pacer. OTHER: No other significant finding. IMPRESSION: 1. Patchy areas of airspace disease versus artifact, as above. No overt failure or pneu monia otherwise. TECHNICAL DOCUMENTATION: JOB ID: [id number] [employer]- All Rights Reserved
[2017-01-01 12:12] LABS: ABSOLUTE BASOPHILS # (AUTO) 0.1 10^3/uL (0.0-0.2); ABSOLUTE EOSINOPHILS # (AUTO) 0.2 10^3/uL (0.0-0.6); ABSOLUTE LYMPHOCYTES (AUTO) 1.2 10^3/uL (0.5-4.7); ABSOLUTE MONOCYTES (AUTO) 1.1 10^3/uL (0.1-1.4); ABSOLUTE NEUT (AUTO) 8.9 10^3/uL (1.7-8.2); BASOPHILS % (AUTO) 0.7 % (0-2); EOSINOPHILS % (AUTO) 1.5 % (0-6); HEMATOCRIT 27.5 % (37.9-51.0); HEMOGLOBIN 8.7 g/dL (13.5-17.0); HGB HCT DIFFERENCE -1.4; LYMPHOCYTES % (AUTO) 10.5 % (13-45); MEAN CORPUSCULAR HEMOGLOBIN 27.8 pg (27.0-33.4); MEAN CORPUSCULAR HGB CONC 31.6 g/dL (32.0-36.0); MEAN CORPUSCULAR VOLUME 88 fl (80-97); MONOCYTES % (AUTO) 9.3 % (3-13); PROTHROMBIN TIME 16.9 SEC (11.4-15.4); RED BLOOD COUNT 3.12 10^6/uL (4.35-5.55); RED CELL DISTRIBUTION WIDTH 18.8 % (11.5-14.0); WHITE BLOOD COUNT 11.4 10^3/uL (4.0-10.5)
[2017-01-01 12:13] LABS: PARTIAL THROMBOPLASTIN TIME 34.4 SEC (23.5-35.8)
[2017-01-01 12:16] LABS: ALANINE AMINOTRANSFERASE 21 U/L (21-72); ALBUMIN 3.8 g/dL (3.5-5.0); ALKALINE PHOSPHATASE 151 U/L (38-126); ANION GAP 15 (5-19); ASPARTATE AMINO TRANSFERASE 36 U/L (17-59); BILIRUBIN,DIRECT 0.7 mg/dL (0.0-0.4); BLOOD UREA NITROGEN 28 mg/dL (7-20); CALCIUM 8.9 mg/dL (8.4-10.2); CARBON DIOXIDE 30 mmol/L (22-30); CHLORIDE 91 mmol/L (98-107); CREATINE KINASE 29 U/L (55-170); GLUCOSE 281 mg/dL (75-110); MAGNESIUM 1.5 mg/dL (1.6-2.3); SODIUM 135.9 mmol/L (137-145)
[2017-01-01] MEDS ORDERED: MAGNESIUM SULFATE 4 GM/100 ML RTUPB IV ONE (12:18)
[2017-01-01 12:30] LABS: VENOUS BLOOD BASE EXCESS 3.4 mmol/L; VENOUS BLOOD HCO3 29.3 mmol/L (20-32); VENOUS BLOOD PCO2 50.4 mmHg (35-63); VENOUS BLOOD PH 7.38 (7.30-7.42)
[2017-01-01 12:33] LABS: TROPONIN I 0.073 ng/mL
[2017-01-01] MEDS ORDERED: HYDROCODONE/ACETAMINOPHEN 5-325 MG TABLET PO ONE ×2 (12:52→16:08)
[2017-01-01] MEDS ORDERED: DOXYCYCLINE HYCLATE INJ 100 MG VIAL IV ONE (13:35)
[2017-01-01] MEDS ORDERED: CEFTRIAXONE 1 GM/D5W RTU 1 GM/50 ML RTUPB IV ONE (13:36)
[2017-01-01 16:30] VITALS: BP 117/83
--- NOTE | 2017-01-01 23:41 | EKG REPORT ---
SEVERITY:- ABNORMAL ECG - ATRIAL FIBRILLATION VENTRICULAR PREMATURE COMPLEX INCOMPLETE RIGHT BUNDLE BRANCH BLOCK LOW VOLTAGE THROUGHOUT CONSIDER ANTERIOR INFARCT : Confirmed by: Kacey Sousa 01-Jan-2017 23:40:04
--- NOTE | 2017-01-01 23:41 | EKG REPORT ---
SEVERITY:- ABNORMAL ECG - ATRIAL FIBRILLATION MULTIFORM VENTRICULAR PREMATURE COMPLEXES LOW VOLTAGE THROUGHOUT BORDERLINE T ABNORMALITIES, ANTERIOR LEADS : Confirmed by: Kacey Sousa 01-Jan-2017 23:40:19
--- NOTE | 2017-01-01 23:42 | EKG REPORT ---
SEVERITY:- ABNORMAL ECG - EXTREME TACHYCARDIA WITH WIDE COMPLEX, NO FURTHER RHYTHM ANALYSIS ATTEMPTED VENTRICULAR TACHYCARDIA : Confirmed by: Kacey Sousa 01-Jan-2017 23:41:34
== END 2017-01-01 17:40 | disposition short-term general hospital (02) ==
LOC: ER 11:13
DX: I47.2 Ventricular tachycardia (principal); J44.0 Chronic obstructive pulmonary disease with (acute) lower respiratory infection; J18.9 Pneumonia, unspecified organism; D64.9 Anemia, unspecified; D69.6 Thrombocytopenia, unspecified; I48.91 Unspecified atrial fibrillation; R06.02 Shortness of breath; R05 Cough; I10 Essential (primary) hypertension; Z88.0 Allergy status to penicillin; Z88.8 Allergy status to other drugs, medicaments and biological substances; Z91.040 Latex allergy status; Z88.6 Allergy status to analgesic agent; Z86.718 Personal history of other venous thrombosis and embolism; Z95.0 Presence of cardiac pacemaker; Z95.5 Presence of coronary angioplasty implant and graft
CPT/HCPCS: 93005; 99291; 96365; 96366; 96367; 96368; 36415; 87040; 82962; 82550; 83735; 85025; 85610; 85730; 80053; 84484; 82803; 83880; 71010; 93010; J3475; J2250; J3490; J3010; J7060; J0696; J0282; A9270

== ENCOUNTER 2017-01-21 16:26 | Emergency (ER) | payer MEDICARE, OTHER ==
[2017-01-21] MEDS ORDERED: HYDROMORPHONE HCL INJ/PF 2 MG/ML AMPULE IM ONE (17:27)
--- NOTE | 2017-01-21 17:28 | ER Document Report ---
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 Patient was recently discharged from [place] where he had complete workup performed for his heart his peripheral vascular disease Patient states there is no change in the pain but that they switch his pain medication TRAVEL OUTSIDE OF THE [place] IN LAST 30 DAYS: No - HPI Onset: Other Onset/Duration: Persistent, Worse Quality of pain: Sharp Severity: Moderate Pain Level: 3 Associated symptoms: Other Exacerbated by: Movement, Walking - Patient notes he is able to ambulate Relieved by: Denies Similar symptoms previously: Yes Recently seen / treated by doctor: Yes - Related Data Allergies/Adverse Reactions: amoxicillin [Amoxicillin] Allergy (Unknown, Verified 01/21/17 16:42) esomeprazole magnesium [From Nexium] Allergy (Unknown, Verified 01/21/17 16:42) furosemide [From Lasix] Allergy (Verified 01/21/17 16:42) gabapentin Allergy (Verified 01/21/17 16:42) pregabalin [From Lyrica] Allergy (Verified 01/21/17 16:42) Past Medical History - Social History Smoking Status: Former Smoker Cigarette use (# per day): No Chew tobacco use (# tins/day): No Smoking Education Provided: No Frequency of alcohol use: None Drug Abuse: None Family History: Reviewed & Not Pertinent - Past Medical History Cardiac Medical History: Reports: Hx Atrial Fibrillation - FIB/FLUT, Hx DVT, Hx Hypercholesterolemia, Hx Hypertension Denies: Hx Congestive Heart Failure, Hx Heart Attack, Hx Pulmonary Embolism Pulmonary Medical History: Reports: Hx COPD Denies: Hx Asthma, Hx Sleep Apnea Neurological Medical History: Denies: Hx Seizures Endocrine Medical History: Reports: Hx Diabetes Mellitus Type 2. Denies: Hx Hyperthyroidism, Hx Hypothyroidism Renal/ Medical History: Denies: Hx Peritoneal Dialysis GI Medical History: Reports: Hx Gastroesophageal Reflux Disease. Denies: Hx Cirrhosis, Hx Hepatitis Musculoskeltal Medical History: Reports Hx Arthritis Psychiatric Medical History: Reports: Hx Depression Infectious Medical History: Denies: Hx Hepatitis Past Surgical History: Reports: Hx Cardiac Surgery - STENT, PACEMAKER NO DEFIB, Hx Coronary Stent - before 1999, Hx Orthopedic Surgery - shoulder and back, Hx Pacemaker, Hx Vascular Surgery - hematoma removal left leg, Other - cardioversion X 2 atrial fib - Immunizations Hx Diphtheria, Pertussis, Tetanus Vaccination: No Hx Pneumococcal Vaccination: 05/01/12 Review of Systems - Review of Systems Notes: REVIEW OF SYSTEMS: CONSTITUTIONAL : Denies fever, chills, or sweats. Denies recent illness. EENT: Denies eye, ear, throat, or mouth pain or symptoms. Denies nasal or sinus congestion or discharge. Denies throat, tongue, or mouth swelling or difficulty swallowing. CARDIOVASCULAR: Denies chest pain. Denies palpitations or racing or irregular heart beat. Denies ankle edema. RESPIRATORY: Denies cough, cold, or chest congestion. Denies shortness of breath, difficulty breathing, or wheezing. GASTROINTESTINAL: Denies abdominal pain or distention. Denies nausea, vomiting , or diarrhea. Denies blood in vomitus, stools, or per rectum. Denies black, tarry stools. Denies constipation. GENITOURINARY: Denies difficulty urinating, painful urination, burning, frequency, blood in urine, or discharge. MUSCULOSKELETAL: Left leg pain. SKIN: Denies rash, lesions or sores. HEMATOLOGIC : Denies easy bruising or bleeding. LYMPHATIC: Denies swollen, enlarged glands. NEUROLOGICAL: Denies confusion or altered mental status. Denies passing out or loss of consciousness. Denies dizziness or lightheadedness. Denies headache. Denies weakness or paralysis or loss of use of either side. Denies problems with gait or speech. Denies sensory loss, numbness, or tingling. Denies seizures. PSYCHIATRIC: Denies anxiety or stress. Denies depression, suicidal ideation, or homicidal ideation. ALL OTHER SYSTEMS REVIEWED AND NEGATIVE. Dictation was performed using [employer] voice recognition software PHYSICAL EXAMINATION: GENERAL: Well-appearing, well-nourished and in no acute distress. HEAD: Atraumatic, normocephalic. EYES: Pupils equal round and reactive to light, extraocular movements intact, sclera anicteric, conjunctiva are normal. ENT: Nares patent, oropharynx clear without exudates. Moist mucous membranes. NECK: Normal range of motion, supple without lymphadenopathy LUNGS: Breath sounds clear to auscultation bilaterally and equal. No wheezes rales or rhonchi. HEART: Regular rate and rhythm without murmurs ABDOMEN: Soft, nontender, nondistended abdomen. No guarding, no rebound. No masses appreciated. Musculoskeletal: Normal range of motion, no pitting or edema. No cyanosis. NEUROLOGICAL: Cranial nerves grossly intact. Normal speech, normal gait. Normal sensory, motor exams PSYCH: Normal mood, normal affect. SKIN: Surgical incision of the left leg well-healed pulses intact tenderness on palpation no edema of the leg Course - Re-evaluation Re-evalutation: 01/21/17 17:36 Patient defers on any imaging or evaluation of this leg, they state this is chronic and do not want any intervention except for the pain control I will put in for social media content manager as well. pt was recently admitted and worked up for his left leg pain with u/s as well 01/21/17 17:37 01/21/17 20:05 Patient was given pain control given follow-up with social media content manager noted that. Patient has had multiple evaluations for DVTs however I do believe he should have had further workup but he defers at this time as his family member Patient was treated with pain medications sent home with pain medication After performing a Medical Screening Examination, I estimate there is LOW risk for EXPANDING OR RUPTURED ABDOMINAL AORTIC ANEURYSM, CAUDA EQUINA SYNDROME, EPIDURAL MASS LESION, or HERNIATED DISK CAUSING SEVERE SPINAL STENOSIS, thus I consider the discharge disposition reasonable. I have reevaluated this patient multiple times and no significant life threatening changes are noted. The patient and I have discussed the diagnosis and risks, and we agree with discharging home and close follow-up. We also discussed returning to the Emergency Department immediately if new or worsening symptoms occur with the understanding that symptoms and presentations can change. We have discussed the symptoms which are most concerning (e.g., saddle anesthesia, urinary or bowel incontinence or retention, changing or worsening pain) that necessitate immediate return. Discharge - Discharge Clinical Impression: Left leg pain Condition: Stable Disposition: HOME, SELF-CARE Instructions: Leg Pain Nonspecific ([facility]), Possible Evolving Leg DVT ([facility]) Additional Instructions: Follow up with your physician tomorrow for further care or return to the ED IMMEDIATELY if symptoms worsen or new concerns occur. If you cannot afford to follow up with your primary care physician a list of low cost clinics have been provided at the end of your discharge papers as well. Prescriptions: Hydromorphone HCl 4 mg PO Q6 #20 tablet Referrals: ROS,SHELDON, MD [Primary Care Provider] - Follow up as needed
== END 2017-01-21 17:46 | disposition home or self-care (01) ==
LOC: ER 16:26
DX: M79.605 Pain in left leg (principal); M54.9 Dorsalgia, unspecified; G89.29 Other chronic pain; Z87.891 Personal history of nicotine dependence
CPT/HCPCS: 99283; 96372; J1170

== ENCOUNTER → 2017-01-31 | Outpatient (CLI) | payer MEDICARE, OTHER ==
--- NOTE | 2017-01-31 15:18 | RADIOLOGY REPORT (SQ) ---
EXAM DESCRIPTION: CT LUMBAR SPINE WITHOUT COMPLETED DATE/TIME: 01/31/2017 1:26 pm REASON FOR STUDY: OTHER INTERVERTEBRAL DISC DEGENERATION, LUMBAR REGION (M51.36) M51.36 OTHER INTER VERTEBRAL DISC DEGENERATION, LUMBAR REGION COMPARISON: CT angio chest 10/03/2016 Left lower extremity venous Doppler 09/22/2016 TECHNIQUE: Axial images acquired through the lumbar spine without intravenous contrast. Images revi ewed with lung, soft tissue and bone windows. Reconstructed coronal and sagittal MPR images reviewed . All images stored on PACS. All CT scanners at this facility use dose modulation, iterative reconstruction, and/or weight based d osing when appropriate to reduce radiation dose to as low as reasonably achievable (ALARA). [facility]: Dose Right [facility]: CareDose [facility]: Dose Right [facility]: Teradose 4D [facility]: [employer] RADIATION DOSE: Up-to-date CT equipment and radiation dose reduction techniques were employed. CTDIv ol: 16.6 mGy. DLP: 522 mGy-cm. mGy. LIMITATIONS: None. FINDINGS: SEGMENTATION: There is transitional anatomy, with a small disc space between the S1 and S2 levels. ALIGNMENT: Very mild grade 1 anterolisthesis of L5 over S1 is present related to advanced bilateral f acet arthropathy VERTEBRAL BODIES: Chronic appearing L1 upper endplate 25% compression, unchanged from CT angio chest 10/03/2016 DISCS: The T12-L1, L1-2, L2-3, L3-4 levels are unremarkable. At L4-5, minimal posterior disc bulging and mild bilateral facet and ligament hypertrophy are present . No central or foraminal stenosis. At L 5-S1, advanced bilateral facet arthropathy is present. Heterotopic bone or bone graft material is present along the dorsal aspect of the facet joints. There is mild diffuse posterior disc bulging . No central stenosis. High-grade bilateral foraminal narrowing is present with effacement of the f at planes around the exiting bilateral L5 nerve roots. PEDICLES, TRANSVERSE PROCESSES: No fractures. No dislocation. No acute findings. FACETS, POSTERIOR ELEMENTS: No fractures. No dislocation. HARDWARE: None in the spine. VISUALIZED RIBS: No fractures. SOFT TISSUES: In the left pelvis at the bottom edge of the field of view, an 8.5 x 6.4 cm pelvic retr operitoneal mass is present measuring near water density. This could be a liquified hematoma. Consi matteo CT abdomen pelvis for further evaluation. OTHER: No other significant finding. IMPRESSION: Degenerative changes most pronounced at L5-S1. 8.5 x 6.4 cm pelvic retroperitoneal mass, near water density. Question pelvic hematoma versus cystic necrotic adenopathy or primary retroperitoneal mass. Consider follow-up CT with IV contrast and ora l contrast TECHNICAL DOCUMENTATION: JOB ID: [id number] Quality ID # [id number]: Final reports with documentation of one or more dose reduction techniques (e.g., Au tomated exposure control, adjustment of the mA and/or kV according to patient size, use of iterative reconstruction technique) 2010 [employer]- All Rights Reserved
== END ==
LOC: RAD 12:48
PROVIDERS: ATTEND Physician Assistant
DX: M51.36 Other intervertebral disc degeneration, lumbar region (principal)
CPT/HCPCS: 72131